=== PATIENT | female | born 1985 | race Caucasian/White ===

== ENCOUNTER 2018-09-21 23:23 | Emergency (ER) | payer SELFPAY ==
--- OUTSIDE RECORDS SUMMARY | 2018-09-21 23:26 | XMS REPORT ---
:1985 [facility] Address [address] [place] [address] Care Team Providers Name Role Phone Unavailable Unavailable Unavailable Problems This patient has no known problems. Allergies, Adverse Reactions, Alerts This patient has no known allergies or adverse reactions. Medications This patient has no known medications.
--- NOTE | 2018-09-22 00:43 | EDPHYS ---
Physician Documentation [facility] Name: Mary Stokes Age: 33 yrs Sex: Female : 1985 Arrival Date: 09/21/2018 Time: 23:26 Bed 15 Private MD: ED Physician Thang Gurrola HPI: 09/22 00:10 This 33 yrs old Female presents to ER via Ambulatory with complaints of cp Vomiting, Dizziness, General Weakness. 00:10 The patient presents to the emergency department with nausea, that is mild, vomiting, 1 cp times today. Onset: The symptoms/episode began/occurred today. Possible causes: unknown. Associated signs and symptoms: Pertinent positives: dizziness, lightheaded , Pertinent negatives: diarrhea, dysuria, fever, vaginal discharge, vaginal bleeding. Severity of symptoms: in the emergency department the symptoms are unchanged despite home interventions. 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 - Social history:: Smoking status: Patient/guardian denies using tobacco, never smoked. - Ebola Screening: : Patient negative for fever greater than or equal to 101.5 degrees Fahrenheit, and additional compatible Ebola Virus Disease symptoms. ROS: 00:15 Constitutional: Negative for body aches, chills, fever, poor PO intake. cp 00:15 Eyes: Negative for injury, pain, redness, and discharge. cp 00:15 ENT: Negative for drainage from ear(s), ear pain, sore throat, difficulty swallowing, difficulty handling secretions. 00:15 Cardiovascular: Negative for chest pain, palpitations. 00:15 Respiratory: Negative for cough, shortness of breath, wheezing. 00:15 Abdomen/GI: Positive for nausea, Negative for diarrhea, constipation, anorexia, black/tarry stool, rectal bleeding, active vomiting. 00:15 : Negative for urinary symptoms, flank pain, vaginal bleeding, vaginal discharge. 00:15 Skin: Negative for rash. 00:15 Neuro: Positive for dizziness, Negative for altered mental status, headache, syncope, weakness. 00:15 All other systems are negative. Exam: 09/22 00:20 Constitutional: The patient appears in no acute distress, alert, awake, non-toxic, well cp developed, well nourished. 00:20 Head/Face: Normocephalic, atraumatic. cp 00:20 Eyes: Periorbital structures: appear normal, Conjunctiva: normal, no exudate, no injection, Sclera: no appreciated abnormality, Lids and lashes: appear normal, bilaterally. 00:20 ENT: External ear(s): are unremarkable, Nose: is normal, Mouth: Lips: moist, Oral mucosa: pink and intact, moist, Posterior pharynx: is normal, airway is patent, no erythema, no exudate. 00:20 Neck: ROM/movement: is normal, is supple, without pain, no range of motions limitations, no nuchal rigidity. 00:20 Chest/axilla: Inspection: normal, Palpation: is normal, no crepitus, no tenderness. 00:20 Cardiovascular: Rate: normal, Rhythm: regular. 00:20 Respiratory: the patient does not display signs of respiratory distress, Respirations: normal, no use of accessory muscles, no retractions, no splinting, no tachypnea, labored breathing, is not present, Breath sounds: are clear throughout, no decreased breath sounds, no stridor, no wheezing. 00:20 Abdomen/GI: Inspection: abdomen appears normal, Palpation: abdomen is soft and non-tender, in all quadrants, voluntary guarding, is not appreciated, involuntary guarding, is not appreciated. 00:20 Back: pain, is absent, ROM is normal. 00:20 Skin: no rash present. 00:20 Neuro: Orientation: to person, place \T\ time. Mentation: is normal, Motor: moves all fours, strength is normal. Vital Signs: 09/21 23:55 BP 140 / 91; Pulse 75; Resp 16; Pulse Ox 99% on R/A; tr5 09/22 00:25 BP 127 / 82 Supine; Pulse 60; tr5 00:28 BP 126 / 89 Sitting; Pulse 60; tr5 00:32 BP 122 / 86 Standing; Pulse 56; tr5 MDM: 00:03 Patient medically screened. cp 00:42 Data reviewed: vital signs, nurses notes, lab test result(s), and as a result, I will cp discharge patient. 00:42 Differential diagnosis: gastritis, , dehydration, electrolyte abnormality. cp Counseling: I had a detailed discussion with the patient and/or guardian regarding: the historical points, exam findings, and any diagnostic results supporting the discharge/admit diagnosis, lab results, the need for outpatient follow up, an OB/Gyne specialist, to return to the emergency department if symptoms worsen or persist or if there are any questions or concerns that arise at home. 09/22 00:13 Order name: Urine Dipstick--Ancillary (enter results) [facility] 09/22 00:13 Order name: Urine --Ancillary (enter results) [facility] 09/21 23:59 Order name: Orthostatics; Complete Time: 00:36 cp 09/22 00:00 Order name: Urine Dipstick-Ancillary (obtain specimen); Complete Time: 00:12 cp 09/22 00:00 Order name: Urine Test (obtain specimen); Complete Time: 00:12 cp 09/22 00:11 Order name: PO challenge; Complete Time: 00:12 cp Administered Medications: 00:39 Drug: Tylenol 1000 mg Route: PO; tr5 Disposition: 09/22/18 00:43 Discharged to Home. Impression: related conditions, unspecified, Nausea and vomiting. - Condition is Stable. - Discharge Instructions: Nausea and Vomiting, Adult, First Trimester of . - Prescriptions for Diclegis 10- 10 mg Oral tablet,delayed release (DR/EC) - take 1 tablet by ORAL route 3-4 times daily As needed 1 tablet prior to meals and 2 tablets at bedtime; 30 tablet. Vitamin 27- 0.8 mg Oral Tablet - take 1 tablet by ORAL route once daily; 60 tablet. - Medication Reconciliation Form, Thank You Letter, Antibiotic Education, Prescription Opioid Use form. - Follow up: Maryuri Cisse MD; When: 1 week; Reason: Recheck today's complaints. Follow up: Maryuri Cisse MD; When: 2 - 3 days; Reason: Worsening of condition. - Problem is new. - Symptoms have improved. Addendum: 09/23/2018 10:00 Co-signature as Attending Physician, Thang Gurrola MD I agree with the assessment and k dr plan of care. Signatures: Dispatcher [facility] EDMS Kayce Ruiz RN RN aa1 Thang Gurrola MD MD kdr Alex Lord PA PA cp Teddy Banks RN RN tr5 Corrections: (The following items were deleted from the chart) 09/22 01:03 00:43 09/22/2018 00:43 Discharged to Home. Impression: related conditions, aa1 unspecified; Nausea and vomiting. Condition is Stable. Forms are Medication Reconciliation Form, Thank You Letter, Antibiotic Education, Prescription Opioid Use. Follow up: Mini Rekhi; When: 2 - 3 days; Reason: Worsening of condition. Problem is new. Symptoms have improved. cp
--- NOTE | 2018-09-22 00:43 | ER ---
Nurse's Notes [facility] Name: Mary Stokes Age: 33 yrs Sex: Female : 1985 Arrival Date: 09/21/2018 Time: 23:26 Bed 15 Private MD: Diagnosis: related conditions, unspecified;Nausea and vomiting Presentation: 09/21 23:45 Presenting complaint: Patient states: Pt has been felling lightheaded and has had some tr5 nausea/vomiting today. Pt suspects there is a possibility that she could be . Pt report sore breasts and a LMP of August 24. Transition of care: patient was not received from another setting of care. Onset of symptoms was September 21, 2018. Risk Assessment: Do you want to hurt yourself or someone else? Patient reports no desire to harm self or others. Initial Sepsis Screen: Does the patient meet any 2 criteria? No. Patient's initial sepsis screen is negative. Does the patient have a suspected source of infection? No. Patient's initial sepsis screen is negative. Care prior to arrival: None. 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 - Social history:: Smoking status: Patient/guardian denies using tobacco, never smoked. - Ebola Screening: : Patient negative for fever greater than or equal to 101.5 degrees Fahrenheit, and additional compatible Ebola Virus Disease symptoms. Screenin:57 Abuse screen: Denies threats or abuse. Nutritional screening: No deficits noted. tr5 Tuberculosis screening: No symptoms or risk factors identified. Fall Risk None identified. Assessment: 23:57 General: Appears in no apparent distress. Behavior is calm, cooperative. Pain: Denies tr5 pain. Neuro: Level of Consciousness is awake, alert, obeys commands, Oriented to person, place, time, Mosaic Worker are equal bilaterally. Neuro: Reports weakness. Cardiovascular: Heart tones present Bruits absent Capillary refill < 3 seconds Pulses are all present. Edema is absent. Respiratory: Airway is patent Trachea midline Respiratory effort is even, unlabored, Respiratory pattern is regular, symmetrical, Breath sounds are clear bilaterally. GI: Abdomen is round Reports bloating, nausea, vomiting. : No signs and/or symptoms were reported regarding the genitourinary system. EENT: No signs and/or symptoms were reported regarding the EENT system. Derm: Skin is intact, Skin is dry, Skin is pink, warm \T\ dry. Musculoskeletal: Capillary refill < 3 seconds. 09/22 00:23 Reassessment: Patient appears in no apparent distress at this time. Patient and/or tr5 family updated on plan of care and expected duration. Pain level reassessed. Patient is alert, oriented x 3, equal unlabored respirations, skin warm/dry/pink. 01:00 Reassessment: Patient appears in no apparent distress at this time. Patient is alert, aa1 oriented x 3, equal unlabored respirations, skin warm/dry/pink. Discussed d/c \T\ f/u instructions with pt; denies questions or concerns at this time. Ambulatory to lobby with steady gait. Patient states feeling better. Vital Signs: 09/21 23:55 BP 140 / 91; Pulse 75; Resp 16; Pulse Ox 99% on R/A; tr5 09/22 00:25 BP 127 / 82 Supine; Pulse 60; tr5 00:28 BP 126 / 89 Sitting; Pulse 60; tr5 00:32 BP 122 / 86 Standing; Pulse 56; tr5 ED Course: 09/21 23:26 Patient arrived in ED. am2 23:39 Teddy Banks, REBEKAH is Primary Nurse. tr5 23:42 Alex Lord PA is PHCP. cp 23:42 Thang Gurrola MD is Attending Physician. cp 23:53 Triage completed. tr5 23:57 Arm band placed on. tr5 09/22 00:23 Patient has correct armband on for positive identification. tr5 00:42 Maryuri Cisse MD is Referral Physician. cp 00:42 Referral Physician role handed off by Maryuri Cisse MD cp 00:42 Maryuri Cisse MD is Referral Physician. cp 01:00 No provider procedures requiring assistance completed. Patient did not have IV access aa1 during this emergency room visit. Administered Medications: 00:39 Drug: Tylenol 1000 mg Route: PO; tr5 Outcome: 00:43 Discharge ordered by . sudheer 01:00 Discharged to home ambulatory. aa1 01:00 Condition: good 01:00 Discharge instructions given to patient, Instructed on discharge instructions, follow up and referral plans. medication usage, Demonstrated understanding of instructions, follow-up care, medications, Prescriptions given X 2. 01:03 Patient left the ED. aa1 Signatures: Kayce Ruiz RN RN aa1 Alex Lord PA PA Cassidy Angel am2 Teddy Banks RN RN tr5 Corrections: (The following items were deleted from the chart) 09/21 23:57 23:57 General: Appears tr5 tr5 09/22 00:36 00:25 BP 127 / 82; Pulse 60bpm; tr5 tr5
[2018-09-22] MEDS ORDERED: ACETAMINOPHEN 500 MG TAB ONE (00:46)
[2018-09-22 02:05] LABS: Urine Blood NEGATIVE (NEG); Urine Glucose NEGATIVE (NEG); Urine Protein TRACE (NEG); Urine Specific Gravity >1.030 (1.005-1.030); Urine pH 5.5 (5.0-7.0)
[2018-09-22 02:45] VITALS: O2SAT 99
[2018-09-22 02:49] VITALS: BP 122/86
== END 2018-09-22 01:03 | disposition home or self-care (01) ==
LOC: ER 23:23
DX: O21.9 Vomiting of pregnancy, unspecified (principal); Z3A.01 Less than 8 weeks gestation of pregnancy
CPT/HCPCS: 81003; 81025; 99283

== ENCOUNTER 2018-11-07 17:32 | Emergency (ER) | payer OTHER ==
--- OUTSIDE RECORDS SUMMARY | 2018-11-07 17:34 | XMS REPORT ---
:1985 [facility] Address [address] [place] [address] Care Team Providers Name Role Phone Unavailable Unavailable Unavailable Problems This patient has no known problems. Allergies, Adverse Reactions, Alerts This patient has no known allergies or adverse reactions. Medications This patient has no known medications.
--- OUTSIDE RECORDS SUMMARY | 2018-11-07 17:35 | XMS REPORT | Summary of Care ---
:1985 Author Organization [facility] Address [address] [place] [id number] Care Team Providers Name Role Phone Kendra Yanez [facility] Provider Reason for Visit Reason Comments Follow-up Encounter Details Date Type Department Care Team Description 10/29/2018 Office Visit [facility] Edwardo Mahoney Bilateral wrist pain Surgery- Denae Pierson MD (Primary Dx) [address], [address] [place] [address] [place], [place] [phone] [id number] Allergies No Known Allergiesdocumented as of this encounter (statuses as of 11/02/2018) Medications Medication Sig Dispensed Refills Start Date End Date Status QUEtiapine (SEROQUEL) Take 100 mg by 0 Active 100 mg tablet mouth daily. metroNIDAZOLE 500 mg Take 1 tablet by 14 tablet 0 05/18/2018 Active tabletIndications: BV mouth 2 (two) (bacterial vaginosis) times daily. documented as of this encounter (statuses as of 11/02/2018) Active Problems Problem Noted Date Vaginal discharge 05/18/2018 Tobacco use disorder 04/29/2016 History of depression 04/29/2016 Contraceptive management 11/26/2014 Overview: Nexplanon insertion 2013, removal 2016 IUD insertion 2016, removal 2017 documented as of this encounter (statuses as of 11/02/2018) Resolved Problems Problem Noted Date Resolved Date IUD (intrauterine device) in place 06/10/2016 02/22/2018 Well woman exam 04/29/2016 02/22/2018 Obese 04/29/2016 02/22/2018 Nexplanon removal 04/29/2016 06/10/2016 Encounter for IUD insertion 04/29/2016 06/10/2016 BV (bacterial vaginosis) 09/16/2015 02/22/2018 Breakthrough bleeding on Nexplanon 09/16/2015 02/22/2018 BV (bacterial vaginosis) 05/05/2015 09/16/2015 History of depression 11/26/2014 05/05/2015 Obesity 11/26/2014 11/26/2014 Overview: ICD10 Diagnosis Term Bender Machine Utility BV (bacterial vaginosis) 11/26/2014 05/05/2015 Screen for STD (sexually transmitted disease) 11/26/2014 02/22/[address] 11/26/2014 04/29/2016 Overweight 11/26/2014 05/05/2015 Overview: ICD10 Diagnosis Term Bender Machine Utility Bacterial vaginosis 05/16/2013 11/26/2014 Encounter for routine gynecological examination 05/02/2012 11/26/2014 Overview: ICD10 Diagnosis Term Bender Machine Utility Tobacco use disorder 05/02/2012 05/05/2015 Abdominal pain, epigastric 05/02/2012 05/16/2013 Depression 05/02/2012 11/26/2014 Overview: Denies suicidal ideations. Normal spontaneous vaginal delivery 04/09/2011 05/02/2012 Post term , antepartum condition or complication 04/08/20112011 documented as of this encounter (statuses as of 11/02/2018) Immunizations Name Administration Dates Next Due HPV 05/02/2012 Influenza Virus Vaccine 04/10/2011 Tetanus/Diptheria 03/06/2009 documented as of this encounter Social History Tobacco Use Types Packs/Day Years Used Date Current Every Day Smoker Cigarettes 0.25 4 Started: 04/29/2010 Smokeless Tobacco: Never Used Comments: 10 cigarettes per day Alcohol Use Drinks/Week oz/Week Comments No 3 Cans of beer 1.5 every other day Sex Assigned at Date Recorded Not on file Job Start Date Occupation Industry Not on file Not on file Not on file Travel History Travel Start Travel End No recent travel history available. documented as of this encounter Last Filed Vital Signs Vital Sign Reading Time Taken Comments Blood Pressure 113/80 10/29/2018 3:17 PM CDT Pulse 123 10/29/2018 3:17 PM CDT Temperature - - Respiratory Rate - - Oxygen Saturation - - Inhaled Oxygen Concentration - - Weight 87.1 kg (192 lb) 10/29/2018 3:17 PM CDT Height 170.2 cm (5' 7") 10/29/2018 3:17 PM CDT Body Mass Index 30.07 10/29/2018 3:17 PM CDT documented in this encounter Progress Notes Edwardo Mahoney MD - 10/29/2018 3:15 PM CDT Cc: Chief Complaint Patient presents with Follow-up EMG Results. Available in chart. Jackson Enrique 10/29/2018 3:18 PM Mary Stokes is a 33 year old female. Patient here for Bilateral EMG/NVC results. Continues to have pain and discomfort. Allergies Mary has No Known Allergies. Medications Outpatient Medications Prior to Visit Medication Sig Dispense Refill metroNIDAZOLE 500 mg tablet Take 1 tablet by mouth 2 (two) times daily. 14 tablet 0 QUEtiapine (SEROQUEL) 100 mg tablet Take 100 mg by mouth daily. No facility-administered medications prior to visit. Histories Past Medical History: Diagnosis Date Abnormal Pap smear HPV at age 18 Bacterial vaginosis 05/16/2013 Breakthrough bleeding on Nexplanon 09/16/2015 Depression childhood Depression 05/02/2012 Kidney disease 2011 kidney stone Meningitis due to bacteria 2014 STD (sexually transmitted disease) 2011 trichomonas STD (sexually transmitted disease) herpes Tobacco use disorder 05/02/2012 Past Surgical History: Procedure Laterality Date CONTINUOUS MONITORING (EXTERNAL) 04/09/2011 INJECT EPIDURAL ANEST,LUMB,CONTINOUS 04/09/2011 OBSTE CARE,VAG DELIV+ 04/09/2011 OXYTOCIN INDUCTION/AUGMENTATION REFERENCE LINK ORDER 04/09/2011 UTERINE ACTIVITY MONITORING 04/09/2011 Social History Socioeconomic History Marital status: Single Spouse name: Not on file Number of children: 2 Years of education: 11 Highest education level: Not on file Occupational History 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 Employer: [employer] Social Needs Financial resource strain: Not on file Food insecurity: Worry: Not on file Inability: Not on file Transportation needs: Medical: Not on file Non-medical: Not on file Tobacco Use Smoking status: Current Every Day Smoker Packs/day: 0.25 Years: 4.00 Pack years: 1.00 Types: Cigarettes Start date: 04/29/2010 Smokeless tobacco: Never Used Tobacco comment: 10 cigarettes per day Substance and Sexual Activity Alcohol use: No Alcohol/week: 1.5 oz Types: 3 Cans of beer per week Comment: every other day Drug use: No Sexual activity: Yes Partners: Male control/protection: Implant Comment: Last sexual intercourse 02/15/2018 Lifestyle Physical activity: Days per week: Not on file Minutes per session: Not on file Stress: Not on file Relationships Social connections: Talks on phone: Not on file Gets together: Not on file Attends pentecostalism service: Not on file Active member of club or organization: Not on file Attends meetings of clubs or organizations: Not on file Relationship status: Not on file Intimate partner violence: Fear of current or ex partner: Not on file Emotionally abused: Not on file Physically abused: Not on file Forced sexual activity: Not on file Other Topics Concern Service Not Asked Blood Transfusions No Caffeine Concern Not Asked Occupational Exposure Not Asked Hobby Hazards Not Asked Sleep Concern Not Asked Stress Concern Not Asked Weight Concern Not Asked Special Diet Not Asked Back Care Not Asked Exercise Not Asked Bike Helmet Not Asked Seat Belt Not Asked Self-Exams Not Asked Social History Narrative No domestic violence or abuse Family History Problem Relation Age of Onset Asthma Mother Hypertension Mother Neurological Mother Stroke Arthritis NoFHx defects NoFHx Colon Cancer NoFHx Ovarian Cancer NoFHx Uterine Cancer NoFHx Diabetes NoFHx Genetic NoFHx Cancer NoFHx Depression NoFHx Heart NoFHx Mental retardation NoFHx High cholesterol NoFHx Osteoporosis NoFHx Psychiatry NoFHx Review of Systems Constitutional: Negative. HENT: Negative. Eyes: Negative. Respiratory: Negative. Breasts: Negative. Cardiovascular: Negative. Gastrointestinal: Negative. Genitourinary: Negative. Musculoskeletal: Positive for joint swelling. Skin: Negative. Neurological: Positive for numbness. Psychiatric/Behavioral: Negative. Endocrine: Endocrine negative Vital Signs Ht 67" (170.2 cm) | Wt 87.1 kg (192 lb) | BMI 30.07 kg/m Physical Exam Musculoskeletal: General: Well-developed well-nourished oriented to person place and time HEENT normocephalic atraumatic atraumatic pupils equal round reactive to light extraocular muscles intact Cervical thoracic and lumbar spine without focal deficit normal kyphosis and lordosis Chest clear to auscultation and percussion Cardiovascular regular rate and rhythm without gallop rub or murmur soft without organomegaly Normal bowel sounds Neurologic: Focal myotome or dermatomal deficits Vascular: Intact symmetrical bilateral upper and lower extremities Skin without stasis varicosities or breakdown Extremities without cyanosis clubbing or edema Lymphatics no peripheral lymphedema Psych normal mood and affect. Neurovascular function is intact. To include brisk capillary refill warm pink skin active motor function and sensory function intact. Nursing note and vitals reviewed. Conclusions: Abnormal study. Electrodiagnostic evidence of very mild median neuropathies at wrists bilaterally. Assessment/Plan Diagnosis: Bilateral Carpal Tunnel Syndrome - Mild - induced Plan: Mild CTS - recommend night splints - discuss patient medication with OB/ Food Preparation Worker. Follow up prn. documented in this encounter Plan of Treatment Health Maintenance Due Date Last Done Comments PNEUMOCOCCAL 0-64 YEARS COMBINED 1993 SERIES (1 of 1 - PPSV23) VARICELLA VACCINES (1 of 2 - 13+ 2000 2-dose series) DTaP,Tdap,and Td Vaccines (1 - 2006 Tdap) INFLUENZA VACCINE (#1) 2018 04/10/2011 PAP SMEAR 02/22/2021 02/22/2018, 09/02/2014, 06/01/2011, Additional history exists documented as of this encounter Results Not on filedocumented in this encounter Visit Diagnoses Diagnosis Bilateral wrist pain - Primary documented in this encounter Insurance Payer Benefit Plan / Subscriber ID Effective Phone Address Type Group Dates [facility] [place] [place] xxxxxxxxx 2018-Karson [place] Medicaid HEALTH CHOICE - HEALTH [employer] [id number] MANAGED MEDICAID [place], [place] [phone] documented as of this encounter Advance Directives Type Date Recorded 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
[2018-11-07 18:22] LABS: Absolute Lymphocytes (CBC) 2.1 K/uL (0.7-4.9); Basophils % 0.6 % (0-1.3); Hematocrit 38.7 % (36.0-45.0); Lymphocytes % 23.3 % (15.3-44.8); MPV 8.7 fL (7.6-11.3); RBC Red Blood Cell Count 4.28 M/uL (3.86-4.86)
[2018-11-07 18:46] LABS: Urine Blood 2+ (NEG); Urine Glucose NEGATIVE (NEG); Urine Protein NEGATIVE (NEG); Urine Specific Gravity 1.025 (1.005-1.030)
--- NOTE | 2018-11-07 19:05 | RAD REPORT ---
EXAM DESCRIPTION: US - 1St Trimest Single 1St Fetus - 11/07/2018 6:55 pm CLINICAL HISTORY: ABD CRAMPING, COMPARISON: Matter Eval Tm 1 dated 10/27/2018 FINDINGS: A single gestational sac is seen within the uterus. The shape of the sac is within normal limits for gestational age. Within the sac is a single pole heart rate 166 BPM. The placenta is not yet developed due to early gestational age. The maternal adnexa and ovaries are within normal limits. Normal Doppler blood flow was demonstrated to both ovaries. IMPRESSION: Single live early intrauterine gestation with heart rate of 166 BPM. No unusual or unexpected finding.
[2018-11-07 19:06] LABS: BUN Blood Urea Nitrogen 10 mg/dL (7-18); Bicarbonate 24 mmol/L (21-32); Glucose Level 80 mg/dL (74-106); HCG, Quantitative 111783 mIU/mL (1-3); Potassium 3.7 mmol/L (3.5-5.1); Sodium Level 140 mmol/L (136-145)
--- NOTE | 2018-11-07 19:30 | EDPHYS ---
Physician Documentation [facility] Name: Mary Stokes Age: 33 yrs Sex: Female : 1985 Arrival Date: 11/07/2018 Time: 17:35 Bed 20 Private MD: ED Physician Hugo Ferreira HPI: 11/07 18:07 This 33 yrs old Female presents to ER via Wheelchair with complaints of kb Vaginal Bleeding, + Preg <12wks. 18:07 The patient presents to the emergency department with abdominal pain, that started kb today, vaginal bleeding, that is moderate. The estimated gestational age is 11 weeks. course: care: at a clinic, Leakage of Fluid: none appreciated, Ultrasound: the patient had an ultrasound, Risk/complications: no obvious risks or complications are appreciated. Previous pregnancies: in previous pregnancies patient has had. Associated signs and symptoms: Pertinent positives: abdominal pain, vaginal bleeding. The patient has not experienced similar symptoms in the past. The patient has not recently seen a physician. 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 - Social history:: Smoking status: . - Ebola Screening: : Patient denies travel to an Ebola-affected area in the 21 days before illness onset. ROS: 18:07 Constitutional: Negative for fever, chills, and weight loss, ENT: Negative for injury, kb pain, and discharge, Neck: Negative for injury, pain, and swelling, Cardiovascular: Negative for chest pain, palpitations, and edema, Respiratory: Negative for shortness of breath, cough, wheezing, and pleuritic chest pain, Back: Negative for injury and pain, MS/Extremity: Negative for injury and deformity, Skin: Negative for injury, rash, and discoloration, Neuro: Negative for headache, weakness, numbness, tingling, and seizure. 18:07 Abdomen/GI: Positive for abdominal cramps. 18:07 : Positive for vaginal bleeding. Exam: 18:07 Constitutional: This is a well developed, well nourished patient who is awake, alert, kb and in no acute distress. Head/Face: Normocephalic, atraumatic. Chest/axilla: Normal chest wall appearance and motion. Nontender with no deformity. No lesions are appreciated. Cardiovascular: Regular rate and rhythm with a normal S1 and S2. No gallops, murmurs, or rubs. Normal PMI, no JVD. No pulse deficits. Respiratory: Lungs have equal breath sounds bilaterally, clear to auscultation and percussion. No rales, rhonchi or wheezes noted. No increased work of breathing, no retractions or nasal flaring. Back: No spinal tenderness. No costovertebral tenderness. Full range of motion. Skin: Warm, dry with normal turgor. Normal color with no rashes, no lesions, and no evidence of cellulitis. MS/ Extremity: Pulses equal, no cyanosis. Neurovascular intact. Full, normal range of motion. Neuro: Awake and alert, GCS 15, oriented to person, place, time, and situation. Cranial nerves II-XII grossly intact. Motor strength 5/5 in all extremities. Sensory grossly intact. Cerebellar exam normal. Normal gait. 18:07 Abdomen/GI: Inspection: abdomen appears normal, Bowel sounds: normal, in all quadrants, Palpation: mild abdominal tenderness, in the right lower quadrant and left lower quadrant. Vital Signs: 17:39 BP 113 / 68; Pulse 85; Resp 17; Temp 97.4(O); Pulse Ox 99% on R/A; Weight 81.65 kg (R); tw2 Height 5 ft. 7 in. (170.18 cm) (R); Pain 8/10; 19:45 BP 109 / 68; Pulse 81; Resp 18; Temp 97.6; Pulse Ox 98% on R/A; Pain 0/10; aa1 17:39 Body Mass Index 28.19 (81.65 kg, 170.18 cm) tw2 MDM: 17:41 Patient medically screened. kb 18:07 Data reviewed: vital signs, nurses notes. Data interpreted: Pulse oximetry: on room air kb is 99 %. Interpretation: normal. 19:08 Counseling: I had a detailed discussion with the patient and/or guardian regarding: the kb historical points, exam findings, and any diagnostic results supporting the discharge/admit diagnosis, lab results, radiology results, the need for outpatient follow up, an OB/Gyne specialist, to return to the emergency department if symptoms worsen or persist or if there are any questions or concerns that arise at home. 11/07 17:42 Order name: Quantitative Hcg; Complete Time: 19:07 kb 11/07 17:42 Order name: Abo/rh Typing; Complete Time: 19:28 kb 11/07 17:42 Order name: Basic Metabolic Panel; Complete Time: 19:07 kb 11/07 17:42 Order name: CBC with Diff; Complete Time: 18:30 kb 11/07 18:26 Order name: Urine Dipstick--Ancillary (enter results); Complete Time: 18:50 em1 11/07 18:26 Order name: Urine --Ancillary (enter results); Complete Time: 18:50 em1 11/07 17:42 Order name: Urine Test (obtain specimen); Complete Time: 18:26 kb 11/07 17:42 Order name: IV Saline Lock; Complete Time: 18:07 kb 11/07 17:42 Order name: Labs collected and sent; Complete Time: 18:08 kb 11/07 17:42 Order name: NPO; Complete Time: 18:08 kb 11/07 17:42 Order name: Urine Dipstick-Ancillary (obtain specimen); Complete Time: 18:26 kb 11/07 18:55 Order name: 1St Trimest Single 1St Fetus EDW[place] Administered Medications: No medications were administered Disposition: 11/08 06:59 Co-signature as Attending Physician, Hugo Ferreira MD. rn Disposition: 11/07/18 19:29 Discharged to Home. Impression: 12 weeks gestation of . - Condition is Stable. - Discharge Instructions: First Trimester of , [id number]. - Medication Reconciliation Form, Thank You Letter, Antibiotic Education, Prescription Opioid Use form. - Follow up: Emergency Department; When: As needed; Reason: Worsening of condition. Follow up: Private Physician; When: 2 - 3 days; Reason: Recheck today's complaints, Continuance of care, Re-evaluation by your physician. Signatures: Dispatcher [facility] Carlee Josue, TOMAS DOUGLAS-Kayce Molina RN RN aa1 Hugo Ferreira MD MD rn Wise, Tara, RN RN tw2 Corrections: (The following items were deleted from the chart) 11/07 18:55 18:30 Transvaginal Ob+US.RAD.DEVIKAZ ordered. [facility] EDMS 19:46 19:29 11/07/2018 19:29 Discharged to Home. Impression: 12 weeks gestation of . aa1 Condition is Stable. Forms are Medication Reconciliation Form, Thank You Letter, Antibiotic Education, Prescription Opioid Use. Follow up: Emergency Department; When: As needed; Reason: Worsening of condition. Follow up: Private Physician; When: 2 - 3 days; Reason: Recheck today's complaints, Continuance of care, Re-evaluation by your physician. kb
--- NOTE | 2018-11-07 19:30 | ER ---
Nurse's Notes [facility] Name: Mary Stokes Age: 33 yrs Sex: Female : 1985 Arrival Date: 11/07/2018 Time: 17:35 Bed 20 Private MD: Diagnosis: 12 weeks gestation of Presentation: 11/07 17:37 Presenting complaint: Patient states: i am confirmed 11 weeks , i started tw2 bleeding about 30 minutes, dark red, i was just standing cooking and a big chunk came out, i have been having a lot of cramping practically the whole and today it was really bad. Transition of care: patient was not received from another setting of care. Onset of symptoms was November 07, 2018. Risk Assessment: Do you want to hurt yourself or someone else? Patient reports no desire to harm self or others. Initial Sepsis Screen: Does the patient meet any 2 criteria? No. Patient's initial sepsis screen is negative. Does the patient have a suspected source of infection? No. Patient's initial sepsis screen is negative. Care prior to arrival: None. 17:37 Method Of Arrival: Wheelchair tw2 17:37 Acuity: [place] 3 tw2 Triage Assessment: 17:39 General: Appears in no apparent distress. Behavior is crying. Pain: Complains of pain tw2 in pelvis. : Reports vaginal bleeding that is bright red, with clots. 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 - Social history:: Smoking status: . - Ebola Screening: : Patient denies travel to an Ebola-affected area in the 21 days before illness onset. Screenin:33 Abuse screen: Denies threats or abuse. Denies injuries from another. Nutritional jl7 screening: No deficits noted. Tuberculosis screening: No symptoms or risk factors identified. Fall Risk IV access (20 points). Total Kang Fall Scale indicates No Risk (0-24 pts). Assessment: 18:33 Obstetrical Assessment: Patient reports abdominal cramping. General: Appears in no jl7 apparent distress. uncomfortable, Behavior is cooperative, appropriate for age, anxious. Neuro: Level of Consciousness is awake, alert, obeys commands, Oriented to person, place, time, situation. Cardiovascular: Patient's skin is warm and dry. Respiratory: Airway is patent Respiratory effort is even, unlabored, Respiratory pattern is regular, symmetrical. : Reports vaginal bleeding that is bright red, moderate flow, since about an hour ago "I have bacterial vaginosis and my doctor called in my prescriptions but I haven't been able to pickling grader the medication.". Derm: Skin is pink, warm \\T\\ dry. 19:45 Reassessment: Patient appears in no apparent distress at this time. Patient is alert, aa1 oriented x 3, equal unlabored respirations, skin warm/dry/pink. Discussed d/c \\T\\ f/u instructions with pt; denies questions or concerns at this time. Ambulates to lobby with steady gait Patient denies pain at this time. Vital Signs: 17:39 BP 113 / 68; Pulse 85; Resp 17; Temp 97.4(O); Pulse Ox 99% on R/A; Weight 81.65 kg (R); tw2 Height 5 ft. 7 in. (170.18 cm) (R); Pain 8/10; 19:45 BP 109 / 68; Pulse 81; Resp 18; Temp 97.6; Pulse Ox 98% on R/A; Pain 0/10; aa1 17:39 Body Mass Index 28.19 (81.65 kg, 170.18 cm) tw2 ED Course: 17:35 Patient arrived in ED. mr 17:39 Triage completed. tw2 17:39 Arm band placed on. tw2 17:41 Carlee Josue FNP-C [facility]. kb 17:41 Hugo Ferreira MD is Attending Physician. kb 17:52 Anand Mayes RN is Primary Nurse. jl7 17:59 Initial lab(s) drawn, by me, sent to lab. Inserted saline lock: 20 gauge in right dh3 antecubital area, using aseptic technique. Blood collected. 18:26 Urine collected: clean catch specimen, clear. dh3 18:33 Patient has correct armband on for positive identification. Bed in low position. Call jl7 light in reach. Side rails up X 1. Pulse ox on. NIBP on. Warm blanket given. 18:55 1St Trimest Single 1St Fetus In Process Unspecified. EDMS 19:45 No provider procedures requiring assistance completed. IV discontinued, intact, aa1 bleeding controlled, No redness/swelling at site. Pressure dressing applied. Administered Medications: No medications were administered Outcome: 19:29 Discharge ordered by . arabella 19:45 Discharged to home ambulatory, with significant other. aa1 19:45 Condition: good 19:45 Discharge instructions given to patient, Instructed on discharge instructions, follow up and referral plans. Demonstrated understanding of instructions, follow-up care. 19:46 Patient left the ED. aa1 Signatures: Dispatcher [employer] EDMS Carlee Josue, REFURBISH TECHNICIAN-C REFURBISH TECHNICIAN-Kayce Molina, RN RN aa1 Ellyn Bhardwaj Cheri Hardwick RN RN tw2 Anand Mayes RN RN jl7 Jossy Coleman [facility]
[2018-11-07 21:07] VITALS: BP 109/68; TEMP 97.6; O2SAT 98
== END 2018-11-07 19:46 | disposition home or self-care (01) ==
LOC: ER 17:32
DX: O20.9 Hemorrhage in early pregnancy, unspecified (principal); Z3A.12 12 weeks gestation of pregnancy
CPT/HCPCS: 36415; 76801; 80048; 81003; 81025; 84702; 85025; 86900; 86901; 99284

== ENCOUNTER 2019-12-17 19:04 | Emergency (ER) | payer OTHER ==
--- OUTSIDE RECORDS SUMMARY | 2019-12-17 19:06 | XMS REPORT | Continuity of Care Document ---
:1985 Author Organization [facility] t Address [address] [place] [address] Care Team Providers Name Role Phone Marcella Patel Attending Clinician Doctor Unassigned, Name Attending Clinician Unavailable Problems This patient has no known problems. Allergies, Adverse Reactions, Alerts This patient has no known allergies or adverse reactions. Medications This patient has no known medications. Procedures This patient has no known procedures. 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
--- OUTSIDE RECORDS SUMMARY | 2019-12-17 19:07 | XMS REPORT | Summary of Care ---
:1985 Author Organization [facility] Address [address] [place] [address] Care Team Providers Name Role Phone Marcella Yanez DAVIN Primary Care Provider Reason for Visit Reason Comments Well Woman Exam Encounter Details Date Type Department Care Team Description 09/20/2019 Office Visit [facility]- Kendra Yanez for other contraceptive management (Primary Dx); JUAN Desai Screen for STD (sexually transmitted dis ease); [address] BV (bacterial vaginosis); Street ROS[address] A Well woman exam; [place], [place] [address] Over weight [id number] Allergies No Known Allergiesdocumented as of this encounter (statuses as of 09/23/2019) Medications Medication Sig Dispensed Refills Start Date End Date Status vitamin w/FA Take 1 tablet by 100 tablet 3 05/11/2019 Active tabletIndications: mouth daily. History of depression, (spontaneous vaginal delivery) docusate calcium 240 mg Take 1 capsule 60 capsule 1 05/11/2019 Active capsuleIndications: by mouth once History of depression, daily as needed (spontaneous for vaginal delivery) Constipation. ferrous sulfate 325 mg Take 1 tablet by 60 tablet 2 05/11/2019 Active (65 mg iron) mouth 2 (two) tabletIndications: times daily. History of depression, (spontaneous vaginal delivery) ibuprofen 600 mg Take 1 tablet by 60 tablet 1 05/11/2019 Active tabletIndications: mouth every 6 History of depression, (six) hours as (spontaneous needed (Pain). vaginal delivery) Take with food or milk. norgestimate-ethinyl Take 1 tablet by 1 Package 2 06/20/2019 Active estradiol (ORTHO mouth daily. TRI-CYCLEN LO, 28,) 0.18/0.215/0.25 mg-25 mcg tabletIndications: Other general counseling and advice for contraceptive management metroNIDAZOLE 500 mg Take 1 tablet by 14 tablet 0 09/20/2019 Active tabletIndications: BV mouth 2 (two) (bacterial vaginosis) times daily. documented as of this encounter (statuses as of 09/23/2019) Active Problems Problem Noted Date Over weight 09/20/2019 Well woman exam 09/20/2019 Other general counseling and advice for contraceptive management 06/20/2019 Cervical Papanicolaou smear negative within last 12 mo [facility] 02/22/2019 Overview: Nil pap 12-18-18 see scanned records History of herpes genitalis 02/11/2019 Overview: suppression at 36 weeks History of depression 04/29/2016 Contraceptive management 11/26/2014 Overview: Nexplanon insertion 2014, removal 2016 IUD insertion 2017, removal 2018 documented as of this encounter (statuses as of 09/23/2019) Resolved Problems Problem Noted Date Resolved Date (spontaneous vaginal delivery) 05/10/201905/29 Single live 05/10/2019 05/30/2019 38 weeks gestation of 05/09/2019 05/30/19 20 Positive GBS test 04/29/2019 05/30/2019 Supervision of high-risk 02/11/201905/29 Multiparity 02/11/2019 09/20/2019 Obesity in 02/11/2019 05/30/2019 Subchorionic hematoma 02/11/2019 05/30/2019 Overview: Per patient, she states it resolved per her last provider History of miscarriage 02/11/2019 05/30/2019 Vaginal discharge 05/18/2018 02/11/2019 IUD (intrauterine device) in place 06/10/201602/22 Well woman exam 04/29/2016 02/22/2018 Obese 04/29/2016 02/22/2018 Tobacco use in 04/29/2016 05/30/2019 Overview: Smokes a few cig a week per patient Nexplanon removal 04/29/2016 06/10/2016 Encounter for IUD insertion 04/29/2016 06/10/2016 BV (bacterial vaginosis) 09/16/2015 02/22/2018 Breakthrough bleeding on Nexplanon 09/16/201502/22 BV (bacterial vaginosis) 05/05/2015 09/16/2015 History of depression 11/26/2014 05/05/2015 Obesity 11/26/2014 11/26/2014 Overview: ICD10 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 BV (bacterial vaginosis) 11/26/2014 05/05/2015 Screen for STD (sexually transmitted disease) 11/26/2014 02/22/[address] 11/26/2014 04/29/2016 Overweight 11/26/2014 05/05/2015 Overview: ICD10 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 Normal spontaneous vaginal delivery 04/09/201104/07 Post term , antepartum condition or complication 04/09/2011 documented as of this encounter (statuses as of 09/23/2019) Immunizations Name Administration Dates Next Due HPV 05/02/2012 HPV9 05/11/2019 Influenza Virus Vaccine 04/10/2011 Influenza Virus Vaccine Quad .5 mL IM 6+ MO 01/18/2019 TDAP (ADACEL) VACCINE 02/25/2019 Tetanus/Diptheria 03/06/2009 documented as of this encounter Social History Tobacco Use Types Packs/Day Years Used Date Current Some Day Smoker Cigarettes 0.05 4 Star danay: 04/29/2010 Smokeless Tobacco: Never Used Comments: per pt smokes 1 cigarette a da y Alcohol Use Drinks/Week oz/Week Comments Yes 2 Cans of beer 2.0 scial Alcohol Habits Answer Date Recorded How often do you have a drink containing alcohol? 2-4 times a month 09/20/2019 How many drinks containing alcohol do you have on a 1 or 2 09/20/2019 typical day when you are drinking? How often do you have six or more drinks on one Never 09/20/2019 occasion? Sex Assigned at Date Recorded Not on file Job Start Date Occupation Industry Not on file Not on file Not on file Travel History Travel Start Travel End No recent travel history available. COVID-19 Exposure Response Date Recorded In the last month, have you been in contact with No / Unsure 09/20/2019 1:22 PM CDT someone who was confirmed or suspected to have Coronavirus / COVID-19? documented as of this encounter Last Filed Vital Signs Vital Sign Reading Time Taken Comments Blood Pressure 116/63 09/20/2019 1:30 PM CDT Pulse 72 09/20/2019 1:30 PM CDT Temperature 36.8 C (98.3 F) 09/20/2019 1:30 PM CDT Respiratory Rate 16 09/20/2019 1:30 PM CDT Oxygen Saturation - - Inhaled Oxygen Concentration - - Weight 84.3 kg (185 lb 12.8 oz) 09/20/2019 1:30 PM CDT Height 167.6 cm (5' 6") 09/20/2019 1:30 PM CDT Body Mass Index 29.99 09/20/2019 1:30 PM CDT documented in this encounter Patient Instructions Patient InstructionsLexa Bianca - 09/20/2019 1:15 PM CDT Patient Education Clinical Breast Exam Many health organizations recommend a yearly clinical breast exam. This exam may be done by a cupola repairer, family healthcare provider, nurse practitioner, nurse blind teacher, or specially trained nurse. Yearly breast exams help tomake surethat breast conditions are found early. Your healthcare providers role A healthcare professional knows the tests and follow-up care needed if a problem is found. Your clinical exam is also a great time to ask questions about breast self-exams. You can find out if yourechecking your breasts in the best way. Or you may want to ask how , breast implants, or breast reduction surgery affect the way you should check your breasts. Diagnostic tests If a clinical exam reveals a breast change, you may have other tests to find out more. These tests may include: Mammography. A low-dose X-ray of your breast tissue. Ultrasound. An imaging test that uses sound waves to create images of your breast. Biopsy. A small amount of breast tissue is removed by needle or by a cut (incision). The tissue is then checked under a microscope. Guidelines for having clinical breast exams The [employer] recommends that starting at age 29, you should have a clinical breast exam every 1 to 3 years. After age 40, have a clinical breast exam each year. If youre at higher risk for breast cancer, you may need exams more often. Risk factors for breast cancer may include: Being over 50 or postmenopausal Having a family history of breast cancer Having the BRCA1 or BRCA2 gene mutation or certain other gene mutations Having more menstrual periods due to starting menstruation early(before age 12) or having a late menopause (after age 55) Having no pregnancies Having a first after age 30 Being obese Having a history of radiation treatment to your chest area Exposure to HAIR during your mother's Not being active Drinking too much alcohol Having dense breast tissue Taking hormone therapy after menopause Other health organizations have different recommendations. Talk with your healthcare provider about what is best for you. [employer] last reviewed this educational content on 10/04/201619997973-2280 [employer]. [address] [place] [address]. All rights reserved. This information is not intended as a substitute for professional medical care. Always follow your healthcare professional's instructions. Patient Education Control: IUD (Intrauterine Device) The IUD (intrauterine device) is small, flexible, and T-shaped. A trained healthcare provider placesit in the uterus. The IUD is one of the most effective control methods. It is also reversible.This means it can be removed at any time by a trained healthcare provider. New IUDs are safe and do not have the risks of older types of IUDs. rates Talk to your healthcare provider about the effectiveness of this control method. Types of IUDs IUD insertion is done in the healthcare providers office. Two types of IUDs are available: The copper IUD releases a small amount of copper into the uterus. The copper makes it harder for sperm to reach the egg. The device works for at least 10 years. The progestin IUD releases a hormone called progestin. It causes changes in the uterus to help prevent . The device works for 3 to 5 years, depending on which device is chosen. It may be recommended for women who have anemia or heavy and painful periods. IUDs have thin strings that hang from the opening of the uterus into the vagina. This lets youcheck that the IUD stays in place. Things to know about IUDs IUDs can be used by women who have never been or by women with a history of sexually transmitted infections (STIs) or tubal . It won't move from the uterus to any other part of the body. There is a slight risk of the device coming out of the vagina (expulsion). It may not work in women who have an abnormally shaped uterus. A copper IUD may cause heavier periods and cramping. Progestin IUD may cause light periods or no periods at all (irregular bleeding or spotting is possible and normal during first 3 to 6 months). If you get a sexually transmitted infection with an IUD in place, symptoms may be more severe. When to call your healthcare provider Be sure your healthcare provider knows if you have: Asexually transmittedinfection (STI)or possible STI Liver problems Blood clots (for progestin IUD only) Breast cancer or a history of breast cancer (progestin IUD only) [employer] last reviewed this educational content on 05/04/201619991648-1995 [employer]. [address] [place] [address]. All rights reserved. This information is not intended as a substitute for professional medical care. Always follow your healthcare professional's instructions. Patient Education Eating Healthy on the Run Many grocery stores stock pre-made salads for eating on the run. Need to eat on the run? This often means grabbing "junk" or fast food full of fat, salt, sugar, and cholesterol. But being in a chaudhari doesn't mean that you can't eat healthy. "Fast" food made healthy Try these ways to get good nutrition, fast. Go to a grocery or convenience market instead of a fast-food restaurant. Look for choices like sandwiches, yogurt, fresh fruit, and juices. Buy precut, prepackaged fresh or frozen fruits and vegetables. You can use them for a snack, salad, smoothie, or stir-quintanilla. Microwave a frozen dinner that has less than 15 grams (g) of fat and less than 800 milligrams (mg) of sodium. Complete the meal with a whole-grain roll, vegetables, and fresh fruit. If you must have fast food, consider your options. Go for veggie burgers, broiled and skinless chicken breast sandwiches, or dinner salads with low-fat dressing. Avoid large (super-sized) portions. Blot the extra oil from food with a napkin before you eat it. Instead of hebrew fries, choose a baked potato with salsa. Tip Fast-food restaurants often have printed nutrition information available. Ask for this information and look up your favorite items before you order. [employer] last reviewed this educational content on 08/04/201619994484-7402 [employer]. [address] [place] [address]. All rights reserved. This information is not intended as a substitute for professional medical care. Always follow your healthcare professional's instructions. Patient Education The Benefits of Living Smoke Free What do you want to gain from quitting? Check off some reasons to quit. Health benefits ___ Improve my ability to breathe without coughing or shortness of breath ___ Reduce my risk of lung cancer, heart disease, chronic lung disease ___ Have fewer wrinkles and softer skin ___ Improve my sense of taste and smell ___ For womenreduce the risk of having a miscarriage, stillbirth, premature , or upo-bnltf-ueqhco baby Personal benefits ___ Feel more in control of my life ___ Have better-smelling hair, breath, clothes, home, and car ___ Save time by not having to take smoke breaks, buy cigarettes, or painting for a light ___ Have whiter teeth Family benefits ___ Reduce my childrens respiratory tract infections ___ Set a good example for my children ___ Reduce my familys cancer risk Financial benefits ___ Save hundreds of dollars each year that would be spent on cigarettes ___ Save money on medical bills ___ Save on life, health, and car insurance premiums Those dollars add up! Cigarettes are expensive, and getting more expensive all the time. Do you realize how much money youare spending on cigarettes per year? What is the average amount you spend on a pack of cigarettes? What is the average number of packs that you smoke per day? Using your answers to these questions, fill in this formula to help you find out: ($ per pack) ( number of packs per day)(365 days) = $ yearly cost of smoking Besides tobacco, there are other costs, including extra cleaning bills and replacement costs for clothing and furniture; medical expenses for smoking- related illnesses; and higher health, life, and carinsurance premiums. Cigars and pipes count too! Cigars and pipes are also dangerous. So are smokeless (chewing) tobacco and snuff. All of these products contain nicotine, a highly addictive substance that has harmful effects on your body. Quitting smoking means giving up all tobacco products. For more information https://smokefree.gov/hbjh-tq-ud-expert National Cancer [place] Smoking Quitline: 780-97A-VKRW (517-592-6533) [employer] last reviewed this educational content on 04/06/201619992452-4375 [employer]. [address] [place] [address]. All rights reserved. This information is not intended as a substitute for professional medical care. Always follow your healthcare professional's instructions. Patient Education Prevention Guidelines,Women Ages 18 to 39 Screening tests and vaccines are an important part of managing your health. A screening test is doneto find possible disorders or diseases in people who don't have any symptoms. The goal is to find a disease early so lifestyle changes can be made and you can be watched more closely to reduce the riskof disease, or to detect it early enough to treat it most effectively. Screening tests are not considered diagnostic, but are used to determine if more testing is needed. Health counseling is essential, too. Below are guidelines for these, for women ages 18 to 39. Talk with your healthcare provider tomake sure youre up-to-date on what you need. Screening Who needs it How often Alcohol misuse All women in this age group At routine exams Blood pressure All women in this age group Yearly checkup if your blood pressure is normal Normal blood pressure is less than 120/80 mm Hg If your blood pressure reading is higher than normal, follow the advice of your healthcare provider Breast cancer All women in this age group should talk with their healthcare providers about the needfor clinical breast exams (CBE)1 Clinical breast exam every 3 years1 Cervical cancer Women ages 21 and older Women between ages 21 and 29 should have a Pap test every 3 years; women between ages 30 and 65 are advised to have a Pap test plus an HPV test every 5 years Chlamydia Sexually active women ages 25 and younger, and women at increased risk for infection (suchas having multiple sex partners) Every year if you're at risk or have symptoms Depression All women in this age group At routine exams Type 2 diabetes, prediabetes All women with no symptoms who are overweight or obese and have 1 or more other risk factors for diabetes At least every 3 years. Also, testing for diabetes during after the 24th week. Type 2 diabetes, prediabetes All women diagnosed with gestational diabetes Lifelong testing every 3 years Type 2 diabetes All women with prediabetes Every year Gonorrhea Sexually active women at increased risk for infection At routine exams Hepatitis C Anyone at increased risk At routine exams HIV All women should be tested at least once for HIV between the ages of 13 and 64 At routine exams.Those with risk factors for HIV should be tested at least annually. Obesity All women in this age group At routine exams Syphilis Women at increased risk for infection should talk with their healthcare provider At routineexams Tuberculosis Women at increased risk for infection should talk with their healthcare provider Ask your healthcare provider Vision All women in this age group At least 1 complete exam in your 20s, and 2 in your 30s Vaccine2 Who needs it How often Chickenpox (varicella) All women in this age group who have no record of this infection or vaccine 2doses; the second dose should be given 4 to 8 weeks after the first dose Hepatitis A Women at increased risk for infection should talk with their healthcare provider 2 dosesgiven at least 6 months apart Hepatitis B Women at increased risk for infection should talk with their healthcare provider 3 dosesover 6 months; second dose should be given 1 month after the first dose; the third dose should be given at least 2 months after the second dose and at least 4 months after the first dose Haemophilus influenzaeType B (HIB) Women at increased risk for infection should talk with their healthcare provider 1 to 3 doses Human papillomavirus (HPV) All women in this age group up to age 26 3 doses; the second dose should be given 1 to 2 months after the first dose and the third dose given 6 months after the first dose Influenza (flu) All women in this age group Once a year Measles, mumps, rubella (MMR) All women in this age group who have no record of these infections or vaccines 1 or 2 doses Meningococcal Women at increased risk for infection should talk with their healthcare provider 1 or more doses Pneumococcal conjugate vaccine (PCV13)and pneumococcal polysaccharidevaccine(PPSV23) Women at increased risk for infection should talk with their healthcare provider PCV13: 1 dose ages 19 to 65 (protects against 13 types of pneumococcal bacteria) PPSV23: 1 to2 doses through age 64, or 1 dose at 65 or older (protects against 23 types of pneumococcal bacteria) Tetanus/diphtheria/pertussis (Td/Tdap) booster All women in this age group Td every 10 years, or a one-time dose of Tdap instead of a Td booster after age 18, then Td every 10 years Counseling Who needs it How often BRCA gene mutation testing for breast and ovarian cancer susceptibility Women with increased risk for having gene mutation When your risk is known Breast cancer and chemoprevention Women at high risk for breast cancer When your risk is known Diet and exercise Women who are overweight or obese When diagnosed, and then at routine exams Domestic violence Women at the age in which they are able to have children At routine exams Sexually transmitted infection prevention Women who are sexually active At routine exams Skin cancer Prevention of skin cancer in fair-skinned adults At routine exams Use of tobacco and the health effects it can cause All women in this age group Every visit 1 According to the ACS, women ages 20 to 39 years should have a clinical breast exam (CBE) as part of their routine health exam every 3 years. Breast self-exams are an option for women starting in their 20s.But the USPSTF does not recommend CBE. [employer] last reviewed this educational content on 12/04/201619993820-6687 [employer]. [address] [place] [address]. All rights reserved. This information is not intended as a substitute for professional medical care. Always follow your healthcare professional's instructions. Patient Education Understanding Compario MyPlate The USDA (U.S. Department of Agriculture) has guidelines to help you make healthy food choices. These are called MyPlate. MyPlate shows the food groups that make up healthy meals using the image of a place setting. Before you eat, think about the healthiest choices for what to put onto your plate or into your cup or bowl. To learn more about building a healthy plate, visit www.choosemyplate.gov. The food groups Fruits. Any fruit or 100% fruit juice counts as part of the Fruit Group. Fruits may be fresh, canned, frozen, or dried, and may be whole, cut-up, or pureed. Make half your plate fruits and vegetables. Vegetables. Any vegetable or 100% vegetable juice counts as a member of the Vegetable Group. Vegetables may be fresh, frozen, canned, or dried. They can be served raw or cooked and may be whole, cut-up, or mashed. Make half your plate fruits and vegetables. Grains. All foods made from grains are part of the Grains Group. These include wheat, rice, oats,cornmeal, and barley such as bread, pasta, oatmeal, cereal, tortillas, and grits. Grains should be no more than a quarter of your plate. At least half of your grains should be whole grains. Protein. This group includes meat, poultry, seafood, beans and peas, eggs, processed soy products(like tofu), nuts (including nut butters), and seeds. Make protein choices no more than a quarter ofyour plate. Meat and poultry choices should be lean or low fat. Dairy. All fluid milk products and foods made from milk that contain calcium, like yogurt and cheese, are part of the Dairy Group. (Foods that have little calcium, such as cream, butter, and cream cheese, are not part of the group.) Most dairy choices should be low-fat or fat-free. Oils. These are fats that are liquid at room temperature. They include canola, corn, olive, soybean, and sunflower oil. Foods that are mainly oil include mayonnaise, certain salad dressings, and soft margarines. You should have only 5 to 7 teaspoons of oils a day. You probably already get this muchfrom the food you eat. [employer] last reviewed this educational content on 10/04/201619999210-7411 [employer]. [address] [place] [address], [place] [address]. All rights reserved. This information is not intended as a substitute for professional medical care. Always follow your healthcare professional's instructions. Patient Education Pap Does this test have other names? Pap smear, cervical cytology, Papanicolaou test, Pap smear test, vaginal smear technique What is this test? This test checks the cells from inside the cervix for any changes that could lead to cancer. The cervix is the lower part of a woman's uterus that opens into the vagina. This test is named after Tomer Lopez MD, one of the healthcare providers whodeveloped this technique of testing for cervical cancer. Why do I need this test? You may need this test as a screening test to look for cervical cancer or changes in cervical cells that might eventually lead to cancer. Major medical groups generally recommend that women get regularPap tests every 3 years starting at age 21. Getting a regular Pap test can be life-saving. Cervical c ancer is one of the most serious types of cancer in women. If your test shows abnormal cells, your healthcare provider may be able to find and treat cervical problems right away, or stop cervical cancer before it becomes life-threatening. Pap tests can also diagnose serious infections and pelvic inflammation. What other tests might I have along with this test? You will likely have a pelvic exam along with this test. Depending on your age and other factors, your tissue samples may also be tested for human papillomavirus (HPV) infection at the same time your Pap test is done. Infection with some types of HPV puts you at risk for cervical cancer. If you have an abnormal Pap test result, your healthcare provider may order other tests. These may include: Colposcopy. Your cervix and vagina are looked at with a microscope called a colposcope, which magnifies any abnormal areas. Endocervical curettage. Cells are taken from the opening of your cervix with a spoon-shaped tool and looked at under a microscope. This may be done during the colposcopy. Biopsy. A small tissue sample is taken from your cervix and looked at under a microscope. This may be done during the colposcopy. What do my test results mean? Test results may vary depending on your age, gender, health history, the method used for the test, and other things. Your test results may not mean you have a problem. Ask your healthcare provider whatyour test results mean for you. Your results will either be normal or abnormal. If you get an abnormal result, this usually does notmean that you have cancer. It often means a minor cervical problem. Your healthcare provider may do another Pap test to confirm the initial results. Or he or she may recommend other tests such as colposcopy. Occasionally a lab test has a false-positive result. This means you do not have a cervical problem even though the test result shows you do. How is this test done? This test is done with a sample of cervical cells. For the test, you lie on your back with your knees bent and your feet in stirrups, then relax and spread your legs. As part of a pelvic exam, your healthcare provider first checks your vagina and reproductive organs for infections and health problems. Then yourprovider uses a device called a speculum to open the vagina. The provider examines your cervix and scrapes off a few cells from inside your cervix. Some women may have slight discomfort when the speculum is inserted. Does this test pose any risks? This test poses no known risks. What might affect my test results? Using vaginal lubricants, cleansers, contraceptives, or creams may mask your symptoms. Avoid using vaginal douches and abstain from sex for 2 days before an exam. Using these products or having sex maywash away or disguise abnormal cervical cells. How do I get ready for this test? It may seem like a good idea to wash up before having a Pap test, but this can actually erase the signs of a health problem. For accurate test results, avoid having sex or using tampons, douches, vaginal creams, deodorant sprays and powders, and contraceptive foams and jellies for 2 days before your exam. Don't have the test while you're menstruating. The ideal time to have a Pap test is 10 to 20 days after the first day of your last period. Be sure your healthcare provider knows about all medicines, herbs, vitamins, and supplements you aretaking. This includes medicines that don't need a prescription and any illicit drugs you may use. [employer] last reviewed this educational content on 12/04/201619993598-7111 [employer]. [address] [place] [address]. All rights reserved. This information is not intended as a substitute for professional medical care. Always follow your healthcare professional's instructions. documented in this encounter Progress Notes Kendra Yanez, WHCNP - 09/20/2019 1:15 PM CDT Chief complaint: Chief Complaint Patient presents with Well Woman Exam HPI the patient is here today for WWE and contraceptive management. She reports she is doing well for the most part but does report vaginal discharge. She reports she noticed it a couple of days ago. She declines all other associated symptoms today. She does report 2 new sexual partners since her lastvisit and reports that she recently got back with her partner. She reports she desires STI testing today, and reports she desires IUD for control. She reports her lmp was 7-12-20 and states her last intercourse was 09/18/19, she reports she had intercourse while she was on her cycle. Pt (denies) current or past physical, sexual or emotional abuse. Histories OB History Para Term AB Living 6 3 3 2 3 SAB TAB Ectopic Multiple Live Births 1 1 2 # Outcome Date GA Lbr Jhonny/2nd Weight Sex Delivery Anes PTL Lv 6 Term 04/09/11 40w0d 5 lb 6 oz (2.438 kg) M NORMAL SPONT BETO 5 Term 05/04/05 40w0d 7 lb 12 oz (3.515 kg) M NORMAL SPONT BETO 4 3 Term 2 TAB 1 SAB Past Medical History: Diagnosis Date Abnormal Pap smear 2003 HPV at age 18 Bacterial vaginosis 05/16/2013 Breakthrough bleeding on Nexplanon 09/16/2015 Depression childhood Depression 05/02/2012 not on meds Genital herpes 2009 not on meds Kidney disease 2011 kidney stone Meningitis due to bacteria 2014 STD (sexually transmitted disease) 2011 trichomonas STD (sexually transmitted disease) 2009 herpes Tobacco use disorder 05/02/2012 Family History Problem Relation Age of Onset Asthma Mother Hypertension Mother Neurological Mother Stroke Heart Maternal Grandmother Arthritis NoFHx defects NoFHx Colon Cancer NoFHx Ovarian Cancer NoFHx Uterine Cancer NoFHx Diabetes NoFHx Cancer NoFHx Depression NoFHx Mental retardation NoFHx High cholesterol NoFHx Osteoporosis NoFHx Psychiatry NoFHx Family Status Relation Name Status Mo MGMo NoFHx (Not Specified) Past Surgical History: Procedure Laterality Date CONTINUOUS MONITORING (EXTERNAL) 04/09/2011 INJECT EPIDURAL ANEST,LUMB,CONTINOUS 04/09/2011 OBSTE CARE,VAG DELIV+ 04/09/2011 OXYTOCIN INDUCTION/AUGMENTATION REFERENCE LINK ORDER 04/09/2011 UTERINE ACTIVITY MONITORING 04/09/2011 Social History Socioeconomic History Marital status: Single Spouse name: Not on file Number of children: 2 Years of education: 11 Highest education level: Not on file Occupational History 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: [employer] Social Needs Financial resource strain: Not on file Food insecurity: Worry: Not on file Inability: Not on file Transportation needs: Medical: Not on file Non-medical: Not on file Tobacco Use Smoking status: Current Some Day Smoker Packs/day: 0.05 Years: 4.00 Pack years: 0.20 Types: Cigarettes Start date: 04/29/2010 Smokeless tobacco: Never Used Tobacco comment: per pt smokes 1 cigarette a day Substance and Sexual Activity Alcohol use: Yes Alcohol/week: 2.0 standard drinks Types: 2 Cans of beer per week Frequency: 2-4 times a month Drinks per session: 1 or 2 Binge frequency: Never Comment: scial Drug use: No Sexual activity: Yes Partners: Male control/protection: None, Pill Comment: Last sexual intercourse 09/18/2019 Lifestyle Physical activity: Days per week: Not on file Minutes per session: Not on file Stress: Not on file Relationships Social connections: Talks on phone: Not on file Gets together: Not on file Attends orthodoxy service: Not on file Active member of [...] History Narrative No domestic violence or abuse Patient lives with boyfriend and children. Patient feels safe at home. Patient has 1 cat, son empties litter box. Social History Substance and Sexual Activity Sexual Activity Yes Partners: Male control/protection: None, Pill Comment: Last sexual intercourse 09/18/2019 Labs Labs are pending. Radiology No new radiology. Allergies Mary has No Known Allergies. Medications Mary has a current medication list which includes the following prescription(s): norgestimate-ethinyl estradiol, docusate calcium, ferrous sulfate, ibuprofen, and vitamin w/fa. Review of Systems Constitutional: Negative. HENT: Negative. Eyes: Negative. Respiratory: Negative. Breasts: Negative. Cardiovascular: Negative. Gastrointestinal: Negative. Genitourinary: Positive for vaginal discharge. Musculoskeletal: Negative. Skin: Negative. Neurological: Negative. Psychiatric/Behavioral: Negative. Endocrine: Endocrine negative BP 116/63 (BP Location: Left arm, Patient Position: Sitting, BP CUFF SIZE: Adult Medium) | Pulse 72 | Temp 36.8 C (98.3 F) (Oral) | Resp 16 | Ht 5' 6" (1.676 m) | Wt 185 lb 12.8 oz (84.3 kg) | LMP 09/15/2019 (Exact Date) | BMI 29.99 kg/m Pregravid BMI: Could not be calculated Physical Exam Vitals reviewed. Constitutional: She is oriented to person, place, and time. She appears well- developed and well-nourished. Her body habitus is normal. Neck: No tenderness and no mass. No thyroid nodules and no thyromegaly palpated. No neck adenopathy. Cardiovascular: Regular rate and rhythm. No gallop, no friction rub and no murmur auscultated. No peripheral edema present. Pulmonary/Chest: Breath sounds clear to auscultation. Normal inspiratory effort. Abdominal: Abdomen is soft. No mass palpated. No tenderness present. There is no hepatosplenomegaly,splenomegaly or hepatomegaly. There is no rigidity. No hernia palpated or inspected. Neuro/Psychiatric: She has a normal mood and affect. She is oriented to person, place, and time. Skin: No lesion, no rash and no ulceration present. Lymphadenopathy: No neck adenopathy present. No axillary adenopathy present. No inguinal adenopathy present. Genitourinary Comments: Hodan TIWARI student present during exam Breast: Right breast exhibits no mass, no nipple discharge and no tenderness. Left breast exhibits no mass, no nipple discharge and no tenderness. Breasts are symmetrical. Normal left breast and normalright breast Rectal: Rectal exam with normal anal tone. No mass, no external hemorrhoid and no internal hemorrhoid palpated or inspected. External genitalia: Normal external genitalia appropriate for age. Normal hair distribution. No labial lesion. Urethral meatus: Normal urethral meatus size, location and no lesion. No prolapse present. Normal urethral meatus Urethra: Normal urethra. No urethral tenderness, no mass and no urethral scarring palpated. Bladder: Bladder has no fullness, no mass palpated and no tenderness. Normal bladder Vagina:No lesion inspected. Normal estrogen effect. Normal support. Vaginal discharge found. +clue cells, +whiff test, +vaginal discharge Cervix: Normal cervix. No lesion. No tenderness and no discharge present. Uterus: Uterus is normal size, normal contour, normal position and non-tender. Normal uterus Adnexa: Right adnexa without tenderness, ovary enlargement or mass. Left adnexa without tenderness, ovary enlargement or mass. Normal left adnexa and normal right adnexa Anus/perineum: Normal perineum and normal anus. Assessment/Plan Return to clinic in 1 weeks. for IUD insert] Return to clinic in 1 year for WWE or sooner as needed Rubella/VZV: immune BMI: 29 [id number] Pap Smear 2018 Gardasil: na Mammogram:na Guaiac:na Colonoscopy:na Encounter for other contraceptive management (primary encounter diagnosis) Comment: return in 1 week for iud Plan: POCT TEST Screen for STD (sexually transmitted disease) Comment: as ordered Plan: GC & CHLAMYDIA AMPLIFIED ASSAY, TRICHOMONAS AMPLIFIED ASSAY, HIV 1/2 AG-AB WITH REFLEX BV (bacterial vaginosis) Comment: +clue cells, +whiff test, +vaginal discharge Plan: metroNIDAZOLE 500 mg tablet Is Wet Prep Result Normal or Abnormal?: (!) (P) Abnormal Well woman exam Comment: routine Plan: return in 1 year Over weight Comment: see bmi Plan: BMI discussed, appropriate weight gain, sensible diet, and exercise, increased fiber and waterintake and protein low in fat. Encouraged exercise for 30 min everyday; begin regimen with caution to prevent injury. Encouraged to decrease BMI to <25. This visit did not involve counseling and coordination that comprised more than 50% of the visit time. JUAN Hutton 09/20/2019 2:23 PM Bianca Lindquist 09/20/2019 1:15 PM CDT34 year old presented to the clinic for WWE. 1) Previous BCM: OCP 2) Desired BCM: IUD 3) LMP: 09/18/2019 4) Last [place]: 09/18/2019 5) Last Pap: 02/202018 Results: Neg HPV Results Neg 6) Tdap in last 10 years? 02/25/2019 7) HPV Vaccines 05/02/2012 8) C/O N/a 9) Patient no history of physical, emotional, or sexual abuse. Patient states she currently feels safe at home. documented in this encounter Plan of Treatment Date Type Specialty Care Team Description 09/27/2019 Office Visit OB Satellites Silva Yanez, [facility] [address], [place] [address] [phone] Name Type Priority Associated Diagnoses Date/Ti me GC & CHLAMYDIA AMPLIFIED LAB Routine Screen for STD ( sexually 09/20/2019 2:46 PM ASSAY transmitted disease) CDT TRICHOMONAS AMPLIFIED LAB Routine Screen for STD (sex ually 09/20/2019 2:46 PM ASSAY transmitted disease) CDT Health Maintenance Due Date Last Done Comments INFLUENZA VACCINE (#1) 2019 01/18/2019, 04/10/2011 Depression Screening 06/19/2020 06/20/2019 PAP SMEAR 02/22/2021 02/22/2018, 09/02/2014, 06/01/2011, Additional history exists DTaP,Tdap,and Td Vaccines (2 - 02/25/2029 02/25/2019 Td) PNEUMOCOCCAL 0-64 YEARS COMBINED Discontinued SERIES documented as of this encounter Procedures Procedure Name Priority Date/Time Associated Diagnosis Comme nts HIV 1/2 AG-AB WITH Routine 09/20/2019 2:44 Screen for STD Res ults for this REFLEX PM CDT (sexually transmitted proced ure are in disease) the results section. POCT Routine 09/13/2019 Encounter for other Result s for this TEST contraceptive procedure are in management the results section. documented in this encounter Results HIV 1/2 AG-AB WITH REFLEX (09/20/2019 2:44 PM CDT) Pathologist Sig nature HIV 1/2 Ag-Ab with Negative Negative [facility] HIV Semi-quantitative 0.07 [facility] Specimen Blood - ARM, LEFT Narrative Performed At Non-reactive for HIV-1 antigen and HIV-1/HIV-2 antibod ies. [facility] No laboratory evidence of HIV infection. Repeat in 2-4 weeks if acute HIV infection is suspected. Performing Organization Address City/State/Zipcode Phone Number [facility] CLIA: [id number], [address] [place], [place] [address] [facility] POCT TEST (09/13/2019) Pathologist Sig nature POCT PREG Negative On board controls acceptable Yes with C Line POCT PREG LOT # POCT PREG TEST DATE Specimen Urine - URINE, CLEAN CATCH documented in this encounter Visit Diagnoses Diagnosis Encounter for other contraceptive manage ment - Primary Screen for STD (sexually transmitted dis ease) Screening examination for venereal disea se BV (bacterial vaginosis) Vaginitis and vulvovaginitis, unspecifie d Well woman exam Routine general medical examination at a health care facility Over weight Overweight documented in this encounter Insurance Payer Benefit Plan / Subscriber ID Effective Phone Address T [employer]pe [employer] [facility] xxxxxxxxx 2018-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
--- OUTSIDE RECORDS SUMMARY | 2019-12-17 19:07 | XMS REPORT | Summary of Care ---
:1985 Author Organization [facility] Address [address] [place] [id number] Care Team Providers Name Role Phone Marcella Yanez DAVIN Primary Care Provider Reason for Visit Reason Comments Well Woman Exam Encounter Details Date Type Department Care Team Description 09/20/2019 Office Visit [facility]- Kendra Yanez for other contraceptive management (Primary Dx); JUAN Desai Screen for STD (sexually transmitted dis ease); [address] BV (bacterial vaginosis); Street ROSALIA A Well woman exam; [place], [place] [address] Over weight [id number] Allergies No Known Allergiesdocumented as of this [...] Papanicolaou smear negative within last 12 mo [facility] 02/22/2019 Overview: Nil pap 12-18-18 see scanned [...] Obesity 11/26/2014 11/26/2014 Overview: ICD10 Diagnosis 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 BV (bacterial vaginosis) 11/26/2014 05/05/2015 Screen for STD (sexually transmitted disease) 11/26/2014 02/22/[address] 11/26/2014 04/29/2016 Overweight 11/26/2014 05/05/2015 Overview: ICD10 Diagnosis 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 Yearly breast exams [...] Guidelines for having clinical breast exams The [employer]st[employer] and Gynec[employer] recommends that [...] provider about what is best for you. [employer] last reviewed this educational content on 10/04/201619994650-9922 [employer]. [address] [place] [address]. All rights reserved. This information is not [...] history of breast cancer (progestin IUD only) [employer] last reviewed this educational content on 05/04/201619998018-6943 [employer]. [address] [place] [address]. All rights reserved. This information is not [...] napkin before you eat it. Instead of czech fries, choose a baked potato with salsa. Tip Fast-food restaurants often have printed nutrition information available. Ask for this information and look up your favorite items before you order. [employer] last reviewed this educational content on 08/04/201619990398-4791 [employer]. [address] [place] [address]. All rights reserved. This information is not [...] having a miscarriage, stillbirth, premature , or sby-nahka-lylwtj baby Personal benefits ___ Feel more in [...] up all tobacco products. For more information https://smokefree.gov/wzxd-gw-de-expert National Cancer [place] Smoking Quitline: 508-09K-FKTC (060-157-1745) [employer] last reviewed this educational content on 04/06/201619999175-0166 [employer]. [address] [place] [address]. All rights reserved. This information is not [...] 20s.But the USPSTF does not recommend CBE. [employer] last reviewed this educational content on 12/04/201619995014-6644 [employer]. [address] [place] [address]. All rights reserved. This information is not intended as a substitute for professional medical care. Always follow your healthcare professional's instructions. Patient Education Understanding [employer] MyPlate The USDA (U.S. Department of Agriculture) [...] get this muchfrom the food you eat. [employer] last reviewed this educational content on 10/04/201619994390-0624 [employer]. [address] [place] [address], [place] [address]. All rights reserved. This information is not [...] and any illicit drugs you may use. [employer] last reviewed this educational content on 12/04/201619992021-9528 [employer]. [address] [place] [address]. All rights reserved. 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 02/25/2019 7) HPV Vaccines 05/02/2012 8) C/O N/a 9) Patient no history of physical, emotional, or sexual abuse. Patient states she currently feels safe at home. documented in this encounter Plan of Treatment Date Type Specialty Care Team Description 09/27/2019 Office Visit OB Satellites Silva Yanez, [facility] [address], [place] [address] [phone] Name Type Priority Associated Diagnoses Date/Ti me [...] nature HIV 1/2 Ag-Ab with Negative Negative [facility] HIV Semi-quantitative 0.07 [facility] Specimen Blood - ARM, LEFT Narrative Performed At Non-reactive for HIV-1 antigen and HIV-1/HIV-2 antibod ies. [facility] No laboratory evidence of HIV infection. Repeat in 2-4 weeks if acute HIV infection is suspected. Performing Organization Address City/State/Zipcode Phone Number [facility] CLIA: [id number], [address] [place], [place] [address] [facility] POCT TEST (09/13/2019) Pathologist Sig nature POCT [...] ID Effective Phone Address T ype [employer] [facility] xxxxxxxxx 2018-[place] 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
--- OUTSIDE RECORDS SUMMARY | 2019-12-17 19:08 | XMS REPORT | Summary of Care ---
:[address] [facility] Address [address] [place] [address] Care Team Providers Name Role Phone Marcella Mcdonough Primary Care Provider Reason for Visit Reason Comments INTRAUTERINE DEVICE Insert Encounter Details Date Type Department Care Team Description 10/11/[address] [facility]- Kendra Mcdonough control counseling (Primary Dx); JUAN Desai Encounter for IUD insertion; [address] [facility] [address] Screening for STD (sexually transmitted disease) [facility] [place], [place] [phone] Allergies No Known Allergiesdocumented as of this encounter (statuses as of 10/11/2019) Medications Medication Sig Dispensed Refills Start Date [...] mouth 2 (two) (bacterial vaginosis) times daily. Hospital, Clinic, Ordered Dose Route Frequency Start Date End Date Status or Other Facility Administered Medication copper (PARAGARD T 1 Intra Intrauterine ONCE 10/11/2019 020 Ended 380A) IUD 1 Intra Uterine Device Uterine Device documented as of this encounter (statuses as of 10/11/2019) Active Problems Problem Noted Date Encounter for IUD insertion 10/11/2019 Over weight 09/20/2019 Well woman exam 09/20/2019 Other general counseling and advice for contraceptive management 06/20/2019 Cervical Papanicolaou smear negative within last 12 mo [facility] 02/22/2019 Overview: Nil pap -- see scanned records History of herpes genitalis 02/11/2019 Overview: suppression at 36 weeks History of depression 04/29/2016 Contraceptive management 11/26/2014 Overview: Nexplanon insertion 2013, removal 2016 IUD insertion 2016, removal 2018 documented as of this encounter (statuses as of 10/11/2019) Resolved Problems Problem Noted Date Resolved Date [...] Obesity 11/26/2014 11/26/2014 Overview: ICD10 Diagnosis Term 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 Card 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 Normal spontaneous vaginal delivery 04/09/201104/07 Post term , antepartum condition or complication 04/09/2011 documented as of this encounter (statuses as of 10/11/2019) Immunizations Name Administration Dates Next Due HPV [...] Assigned at Date Recorded Not on file COVID-19 Exposure Response Date Recorded In the last month, have you been in contact with No / Unsure 10/11/2019 3:38 PM CDT someone who was confirmed or suspected to have Coronavirus / COVID-19? documented as of this encounter Last Filed Vital Signs Vital Sign Reading Time Taken Comments Blood Pressure 104/67 10/11/2019 3:39 PM CDT Pulse 100 10/11/2019 3:39 PM CDT Temperature 37.3 C (99.1 F) 10/11/2019 3:39 PM CDT Respiratory Rate 16 10/11/2019 3:39 PM CDT Oxygen Saturation - - Inhaled Oxygen Concentration - - Weight 85.4 kg (188 lb 3 oz) 10/11/2019 3:39 PM CDT Height 167.6 cm (5' 6") 10/11/2019 3:39 PM CDT Body Mass Index 30.37 10/11/2019 3:39 PM CDT documented in this encounter Progress Notes Kendra Mcdonough WHCNP - 10/11/2019 3:45 PM CDTIUD INSERTION PROCEDURE NOTE Preoperative Diagnoses: desires IUD The risks, benefits and alternatives were discussed. The patient voiced her understanding. She wished to proceed and an informed consent was obtained. Patient has been identified with name and and will be undergoing IUD placement. Indications for paragaurd are: desires. Patient, procedure and site have been confirmed by the following clinicians: Love mcdonough DNP and Bruna Hoffmann RN . Timeout performed by JUAN Hutton at 1610. Procedure: The patient is placed on the exam table in a supine position. Vaginal speculum inserted.The cervix was cleansed with Betadine. Uterus sounded to 8 cm. IUD inserted without difficulty. String visible and trimmed. The patient tolerated the procedure well and there were no complications. Patient was able to feel strings. Post-procedure instructions given. Patient verbalized understanding. Findings/Assessment IUD inserted successfully, patient tolerated procedure well Plan Return to clinic in 6 weeks. ParaGard Lot #: [id number] Expiration date: 09/2025 documented in this encounter Plan of Treatment Date Type Specialty Care Team Description 11/22/2019 Office Visit [facility] Silva Mcdonough [facility]CNP [address] [place], [place] [address] [phone] Name Type Priority Associated Diagnoses Date/Ti me HIV 1/2 AG-AB WITH LAB Routine Screening for STD 09/2019 4:02 PM CDT REFLEX (sexually transmitted disease) [facility] ONLY - [facility] Routine Screening for STD 4:02 PM CDT IGG/IGM (sexually transmitted disease) GC & [facility] LAB Routine Screening for STD 10/11/19 4:03 PM CDT AMPLIFIED ASSAY (sexually transmitted disease) Health Maintenance Due Date Last Done Comments INFLUENZA VACCINE (#1) 2019 01/18/2019, 04/10/2011 Depression Screening 06/19/2020 06/20/2019 PAP SMEAR 02/22/2021 02/22/2018, 09/02/2014, 06/01/2011, Additional history exists DTaP,Tdap,and Td Vaccines (2 - 02/25/2029 02/25/2019 Td) PNEUMOCOCCAL 0-64 YEARS COMBINED Discontinued SERIES documented as of this encounter Procedures Procedure Name Priority Date/Time Associated Diagnosis Comme nts POCT TEST Routine 10/11/2019 3:42 PM control Results for this CDT counseling procedure are i n the results section. documented in this encounter Results POCT TEST (10/11/2019 3:42 PM CDT) Pathologist Sig nature POCT PREG Negative On board controls acceptable Yes with C Line POCT PREG LOT # POCT PREG TEST DATE Specimen Urine - URINE, CLEAN CATCH documented in this encounter Visit Diagnoses Diagnosis control counseling - Primary General counseling for initiation of oth er contraceptive measures Encounter for IUD insertion Encounter for insertion of intrauterine contraceptive device Screening for STD (sexually transmitted disease) Screening examination for venereal disea se documented in this encounter Administered Medications Medication Order MAR Action Action Date Dose Rate Site copper (PARAGARD T 380A) Given 10/11/2019 4:23 PM 1 Intra Uteri ne IUD 1 Intra Uterine CDT Device Device 1 Intra Uterine Device, Intrauterine, ONCE, 1 dose, Mon10/11/19 at 1730, Routine documented in this encounter Insurance Payer Benefit Plan / Subscriber ID Effective Phone Address T ype Group Dates [facility] [id number] 2018-Karson 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
--- OUTSIDE RECORDS SUMMARY | 2019-12-17 19:08 | XMS REPORT | Summary of Care ---
:1985 Author Organization [facility] Address [address] [place] [address] Care Team Providers Name Role Phone Marcella Yanez [facility] Primary Care Provider Reason for Visit Reason Comments INTRAUTERINE DEVICE Encounter Details Date Type Department Care Team Description 09/27/2019 Office Visit [facility]- Kendra [facility]anez [facility] [address] Dx) [place], [place] [phone] Allergies No Known Allergiesdocumented as of this encounter (statuses as of 09/30/2019) Medications Medication Sig Dispensed Refills Start Date [...] as of this encounter (statuses as of 09/30/2019) Active Problems Problem Noted Date Over weight 09/20/2019 Well woman exam 09/20/2019 Other general counseling and advice for contraceptive management 06/20/2019 Cervical Papanicolaou smear negative within last 12 mo 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 Normal spontaneous vaginal delivery 04/09/201104/07 Post term , antepartum condition or complication 04/09/2011 documented as of this encounter (statuses as of 09/30/2019) Immunizations Name Administration Dates Next Due HPV [...] been in contact with No / Unsure 09/27/2019 2:57 PM CDT someone who was confirmed or suspected to have Coronavirus / COVID-19? documented as of this encounter Last Filed Vital Signs Vital Sign Reading Time Taken Comments Blood Pressure 120/81 09/27/2019 2:57 PM CDT Pulse 107 09/27/2019 2:57 PM CDT Temperature 36.6 C (97.9 F) 09/27/2019 2:57 PM CDT Respiratory Rate 16 09/27/2019 2:57 PM CDT Oxygen Saturation - - Inhaled Oxygen Concentration - - Weight 84 kg (185 lb 2 oz) 09/27/2019 2:57 PM CDT Height 167.6 cm (5' 6") 09/27/2019 2:57 PM CDT Body Mass Index 29.88 09/27/2019 2:57 PM CDT documented in this encounter Progress Notes Taryn Figueredo LVN - 09/27/2019 2:30 PM CDTPatient here for IUD removal, stated last intercourse was this morning and did not use protection. Informed patient to RTC in 2 weeks and remain abstinence until appointment and IUD can be inserted. documented in this encounter Plan of Treatment Date Type Specialty Care Team Description 10/14/2019 [facility] [address] [place], [place] [address] [phone] Health Maintenance Due Date Last Done Comments INFLUENZA VACCINE (#1) 2019 01/18/2019, 04/10/2011 Depression Screening 06/19/2020 06/20/2019 PAP SMEAR 02/22/2021 02/22/2018, 09/02/2014, 06/01/2011, Additional history exists DTaP,Tdap,and Td Vaccines (2 - 02/25/2029 02/25/2019 Td) PNEUMOCOCCAL 0-64 YEARS COMBINED Discontinued SERIES documented as of this encounter Procedures Procedure Name Priority Date/Time Associated Diagnosis Comme nts POCT TEST Routine 09/27/2019 4:07 PM control Results for this CDT counseling procedure are i n the results section. documented in this encounter Results POCT TEST (09/27/2019 4:07 PM CDT) Pathologist Sig nature POCT PREG Negative On board controls acceptable Yes with C Line POCT PREG LOT # POCT PREG TEST DATE Specimen Urine - URINE, CLEAN CATCH documented in this encounter Visit Diagnoses Diagnosis control counseling - Primary General counseling for initiation of oth er contraceptive measures documented in this encounter Insurance Payer Benefit Plan / Subscriber ID Effective Phone Address T ype Group Dates [facility] xxxxxxxxx 2018-Prese [address] Medic aid HEALTH CHOICE - HEALTH CHOICE nt [id number] 1 MANAGED MEDICAID [place], [place]ID [phone] documented as of this encounter Advance Directives Type Date Recorded Patient Primary Care Sales Representative Explanati on Advance Directives and Living Will Power of Tester Food Products Name Relationship Healthcare Agent Relationship Co mmunication Jairo Kaminski Life Partner Primary healthcare agent
--- OUTSIDE RECORDS SUMMARY | 2019-12-17 19:08 | XMS REPORT | Summary of Care ---
:1985 Author Organization [facility] Address [address] [place] [address] Care Team Providers Name Role Phone Marcella Mcdonough Primary Care Provider Reason for Visit Reason Comments INTRAUTERINE DEVICE Insert Encounter Details Date Type Department Care Team Description 10/11/2019 Office Visit [facility]- Kendra Mcdonough control counseling (Primary Dx); JUAN Desai Encounter for IUD insertion; [address] [facility] [address] Screening for STD (sexually transmitted disease) 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 ParaGard Lot #: [id number] Expiration date: 09/2025 documented in this encounter Plan of Treatment Date Type Specialty Care Team Description 11/22/2019 Office Visit [facility] Silva Mcdonough [facility] [address] [place], [place] [address] [phone] Name Type Priority Associated Diagnoses Date/Ti me [...] Effective Phone Address T ype Group Dates [facility] [id number] 2018-Karson 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
--- OUTSIDE RECORDS SUMMARY | 2019-12-17 19:08 | XMS REPORT | Summary of Care ---
:1985 Author Organization [facility] Address [address] [place] [address] Care Team Providers Name Role Phone Marcella Yanez [facility] Primary Care Provider Reason for Visit Reason Comments INTRAUTERINE DEVICE Encounter Details Date Type Department Care Team Description 09/27/2019 Office Visit [facility]- Kendra Yanez [facility] control [facility] [address] Dx) [place], [place] [phone] Allergies No Known [...] Papanicolaou smear negative within last 12 mo [facility] 02/22/2019 Overview: Nil pap 12-18-18 see [...] Obesity 11/26/2014 11/26/2014 Overview: ICD10 Diagnosis 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 BV (bacterial vaginosis) 11/26/2014 05/05/2015 Screen for STD (sexually transmitted disease) 11/26/2014 02/22/[address] 11/26/2014 04/29/2016 Overweight 11/26/2014 05/05/2015 Overview: ICD10 Diagnosis 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 Medic aid HEALTH CHOICE - HEALTH CHOICE nt [id number] 1 MANAGED MEDICAID [place], [place] [phone] documented as of this encounter Advance Directives Type Date Recorded Patient Dyehouse Worker Explanati on Advance Directives and Living Will Power of Demand Inspector Name Relationship Healthcare Agent Relationship Co mmunication Jairo Kaminski Life Partner Primary healthcare agent
--- OUTSIDE RECORDS SUMMARY | 2019-12-17 19:09 | XMS REPORT | Summary of Care ---
:1985 Author Organization [facility] Address [address] [place] [address] Care Team Providers Name Role Phone Marcella Yanez Primary Care Provider Encounter Details Date Type Department Care Team Description 10/11/2019 Orders Only [facility] Doctor Unassigned, No [address] [facility] Name [place] [phone] [place] [phone] Allergies No Known Allergiesdocumented as of this encounter (statuses as of 10/14/2019) Medications Medication Sig Dispensed Refills Start Date [...] as of this encounter (statuses as of 10/14/2019) Active Problems Problem Noted Date Encounter for IUD insertion 10/11/2019 Over weight 09/20/2019 Well woman exam 09/20/2019 Other general counseling and advice for contraceptive management 06/20/2019 Cervical Papanicolaou smear negative within last 12 mo [facility] 02/22/2019 Overview: Nil pap 12-18-18 see scanned records History of herpes genitalis 02/11/2019 Overview: suppression at 36 weeks History of depression 04/29/2016 Contraceptive management 11/26/2014 Overview: Nexplanon insertion 2013, removal 2015 IUD insertion 2016, removal 2017 documented as of this encounter (statuses as of 10/14/2019) Resolved Problems Problem Noted Date Resolved Date [...] Obesity 11/26/2014 11/26/2014 Overview: ICD10 Diagnosis Term Fine Arts Model Utility BV (bacterial vaginosis) 11/26/2014 05/05/2015 Screen for STD (sexually transmitted disease) 11/26/2014 02/22/[address] 11/26/2014 04/29/2016 Overweight 11/26/2014 05/05/2015 Overview: ICD10 Diagnosis Term Fine Arts Model Utility Bacterial vaginosis 05/16/2013 11/26/2014 Encounter for routine gynecological examination 05/02/2012 11/26/2014 Overview: ICD10 Diagnosis Term Fine Arts Model Utility Tobacco use disorder 05/02/2012 05/05/2015 Abdominal pain, epigastric 05/02/2012 05/16/2013 Depression 05/02/2012 11/26/2014 Overview: Denies suicidal ideations. Normal spontaneous vaginal delivery 04/09/201104/07 Post term , antepartum condition or complication 04/09/2011 documented as of this encounter (statuses as of 10/14/2019) Immunizations Name Administration Dates Next Due HPV [...] of this encounter Last Filed Vital Signs Not on filedocumented in this encounter Plan of Treatment Date Type Specialty Care Team Description 11/22/2019 [facility] [address] [place], [place] [address] [phone] Health Maintenance Due Date Last Done Comments INFLUENZA VACCINE (#1) 2019 01/18/2019, 04/10/2011 Depression Screening 06/19/2020 06/20/2019 PAP SMEAR 02/22/2021 02/22/2018, 09/02/2014, 06/01/2011, Additional history exists DTaP,Tdap,and Td Vaccines (2 - 02/25/2029 02/25/2019 Td) PNEUMOCOCCAL 0-64 YEARS COMBINED Discontinued SERIES documented as of this encounter Procedures Procedure Name Priority Date/Time Associated Diagnosis Comme nts DISCLOSURE AND CONSENT, Routine 10/11/2019 12:01 AM MEDICAL AND SURGICAL CDT PROCEDURES documented in this encounter Results Not on filedocumented in this encounter Insurance Payer Benefit Plan / Subscriber ID Effective Phone Address T [facility] [id number] 2018-Karson P.Olivia DICKERSON Medic aid HEALTH CHOICE - HEALTH CHOICE nt [id number] 1 MANAGED MEDICAID [place], [place]ID [phone] documented as of this encounter Advance Directives Type Date Recorded Patient Customer Pricing Manager Explanati on Advance Directives and Living Will Power of Head Worker Name Relationship Healthcare Agent Relationship Co mmunication Jairo Kaminski Life Partner Health Care Agent
--- OUTSIDE RECORDS SUMMARY | 2019-12-17 19:09 | XMS REPORT | Summary of Care ---
:1985 Author Organization [facility] Address [address] [place] [address] Care Team Providers Name Role Phone Marcella Mcdonough Primary Care Provider Reason for Visit Reason Comments INTRAUTERINE DEVICE Insert Encounter Details Date Type Department Care Team Description 10/11/2019 Office Visit [facility]- Kendra Mcdonough control counseling (Primary Dx); JUAN Desai Encounter for IUD insertion; [address] [facility] [address] Screening for STD (sexually transmitted disease) [facility] [place], [place] [phone] Allergies No Known Allergiesdocumented as of this [...] Papanicolaou smear negative within last 12 mo [facility] 02/22/2019 Overview: Nil pap -- see [...] Obesity 11/26/2014 11/26/2014 Overview: ICD10 Diagnosis Term 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 Utility BV (bacterial vaginosis) 11/26/2014 05/05/2015 Screen for STD (sexually transmitted disease) 11/26/2014 02/22/[address] 11/26/2014 04/29/2016 Overweight 11/26/2014 05/05/2015 Overview: ICD10 Diagnosis Term 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 Last date of sexual intercourse was 09/06/2019. LMP 09/15/2019 UPT negative. Informed consent signed and obtained from pt Pt instructed to use a back up control method for the first 7 days, side effects and ER warnings discussed, verbalized understanding. Nexplanon (lot:[id number] exp:08/2025) dispensed from clinic stock to provider for placement. MARKUS COOK RN 10/11/2019 4:42 PM Kendra Mcdonough DAVIN - 10/11/2019 3:45 PM CDTIUD INSERTION PROCEDURE [...] the following clinicians: Love mcdonough DNP and Markus Hoffmann RN . Timeout performed by JUAN [...] Plan Return to clinic in 6 weeks. DedrickGard Lot #: [id number] Expiration date: 09/2025 documented in this encounter Plan of Treatment Date Type Specialty Care Team Description 11/22/2019 Office Visit [facility] Silva Mcdonough [facility] [address] [place], [place] [address] [phone] Name Type Priority Associated Diagnoses Date/Ti me [...] / Subscriber ID Effective Phone Address T e Group [facility] [id number] 2018-Karson [address] Medic aid HEALTH CHOICE - HEALTH CHOICE nt [id number] 1 MANAGED MEDICAID [place], [place]ID [phone] documented as of this encounter Advance Directives Type Date Recorded Patient House Player Explanati on Advance Directives and Living Will Power of Research Specialist Name Relationship Healthcare Agent Relationship Co mmunication Jairo Kaminski Life Partner Health Care Agent
--- NOTE | 2019-12-17 20:00 | RAD REPORT ---
EXAM DESCRIPTION: RAD - Humerus Left - 12/17/2019 7:46 pm CLINICAL HISTORY: Nontraumatic left arm pain COMPARISON: None. FINDINGS: No fracture is identified. There is no dislocation or periosteal reaction noted. No forei gn body or other soft tissue abnormality. IMPRESSION: Negative left humerus examination.
--- NOTE | 2019-12-17 20:29 | EDPHYS ---
Physician Documentation [facility] Name: Mary Stokes Age: 34 yrs Sex: Female : 1985 Arrival Date: 12/17/2019 Time: 19:06 Bed 17 Private MD: ED Physician Dylan Dent HPI: 12/16 19:35 This 34 yrs old Female presents to ER via Ambulatory with complaints of Arm cp Pain. 19:35 The patient or guardian complains of pain, that is acute. The complaints affect the cp left bicep. 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 - Social history:: Smoking status: Patient reports the use of cigarette tobacco products, smokes one-half pack cigarettes per day. Vital Signs: 19:09 BP 128 / 82; Pulse 72; Resp 17 S; Temp 98.1(O); Pulse Ox 100% on R/A; Weight 81.65 kg jd3 (R); Height 5 ft. 5 in. (165.10 cm) (R); Pain 7/10; 20:15 BP 122 / 70; Pulse 80; Resp 18; Temp 98; Pulse Ox 100% on R/A; mg2 19:09 Body Mass Index 29.95 (81.65 kg, 165.10 cm) jd3 MDM: 19:17 Patient medically screened. cp 12/16 19:32 Order name: XRAY Humerus LEFT cp Administered Medications: No medications were administered Disposition: 12/17/19 20:28 Discharged to Home. Impression: Pain in left upper arm. - Condition is Stable. - Discharge Instructions: Musculoskeletal Pain. - Prescriptions for Ibuprofen 800 mg Oral Tablet - take 1 tablet by ORAL route every 8 hours As needed take with food; 30 tablet. - Medication Reconciliation Form, Thank You Letter, Antibiotic Education, Prescription Opioid Use form. - Follow up: Private Physician; When: 2 - 3 days; Reason: Worsening of condition. - Problem is new. - Symptoms have improved. Addendum: 12/19/2019 07:05 Co-signature as Attending Physician, Dylan Dent MD. m Signatures: Dispatcher [employer] EDMS Alex Lord PA PA cp Davies, Jonathon RN RN jd3 Daniel Alford RN RN mg2 Dylan Dent MD MD mh7 Corrections: (The following items were deleted from the chart) 12/16 20:37 20:28 12/17/2019 20:28 Discharged to Home. Impression: Pain in left upper arm. mg2 Condition is Stable. Forms are Medication Reconciliation Form, Thank You Letter, Antibiotic Education, Prescription Opioid Use. Follow up: Private Physician; When: 2 - 3 days; Reason: Worsening of condition. Problem is new. Symptoms have improved. cp
--- NOTE | 2019-12-17 20:29 | ER ---
Nurse's Notes [facility] Name: Mary Stokes Age: 34 yrs Sex: Female : 1985 Arrival Date: 12/17/2019 Time: 19:06 Bed 17 Private MD: Diagnosis: Pain in left upper arm Presentation: 12/16 19:07 Chief complaint: Patient states: "I am having sever left arm pain that came on accouple jd3 of hours ago.". Coronavirus screen: At this time, the client does not indicate any symptoms associated with coronavirus-19. Ebola Screen: Patient negative for fever greater than or equal to 101.5 degrees Fahrenheit, and additional compatible Ebola Virus Disease symptoms. Initial Sepsis Screen: Does the patient meet any 2 criteria? No. Patient's initial sepsis screen is negative. Does the patient have a suspected source of infection? No. Patient's initial sepsis screen is negative. Risk Assessment: Do you want to hurt yourself or someone else? Patient reports no desire to harm self or others. Onset of symptoms was December 17, 2019. 19:07 Method Of Arrival: Ambulatory jd3 19:07 Acuity: [place] 3 jd3 Triage Assessment: 20:00 General: Appears in no apparent distress. comfortable, Behavior is calm, cooperative. 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 - Social history:: Smoking status: Patient reports the use of cigarette tobacco products, smokes one-half pack cigarettes per day. Screenin:30 Abuse screen: Denies threats or abuse. Denies injuries from another. Nutritional mg2 screening: No deficits noted. Tuberculosis screening: No symptoms or risk factors identified. Fall Risk None identified. Assessment: 20:00 General: Appears in no apparent distress. comfortable. Pain: Complains of pain in left mg2 arm Pain at worst was 4 out of 10 on a pain scale. Quality of pain is described as aching, Pain began gradually, 1 day ago. Is intermittent. Neuro: Level of Consciousness is awake, alert, obeys commands, Oriented to person, place, time, situation. Cardiovascular: Capillary refill < 3 seconds Patient's skin is warm and dry. Respiratory: No deficits noted. GI: No signs and/or symptoms were reported involving the gastrointestinal system. : No signs and/or symptoms were reported regarding the genitourinary system. EENT: No signs and/or symptoms were reported regarding the EENT system. Derm: Skin is intact, is healthy with good turgor, Skin is pink, warm \\T\\ dry. normal. Musculoskeletal: Circulation, motion, and sensation intact. Capillary refill < 3 seconds. Vital Signs: 19:09 BP 128 / 82; Pulse 72; Resp 17 S; Temp 98.1(O); Pulse Ox 100% on R/A; Weight 81.65 kg jd3 (R); Height 5 ft. 5 in. (165.10 cm) (R); Pain 7/10; 20:15 BP 122 / 70; Pulse 80; Resp 18; Temp 98; Pulse Ox 100% on R/A; mg2 19:09 Body Mass Index 29.95 (81.65 kg, 165.10 cm) j ED Course: 19:06 Patient arrived in ED. mr 19:08 Triage completed. jd3 19:11 Arm band placed on. jd3 19:12 Alex Lord PA is PHCP. cp 19:12 Dylan Dent MD is Attending Physician. cp 19:12 Liza Abernathy RN is Primary Nurse. ca1 19:46 XRAY Humerus LEFT In Process Unspecified. EDMS 20:00 Patient has correct armband on for positive identification. Door closed. mg2 20:30 No provider procedures requiring assistance completed. Patient did not have IV access mg2 during this emergency room visit. Administered Medications: No medications were administered Outcome: 20:28 Discharge ordered by MD. cp 20:37 Discharged to home ambulatory. mg2 20:37 Condition: good 20:37 Discharge instructions given to patient, Instructed on discharge instructions, follow up and referral plans. medication usage, Demonstrated understanding of instructions, follow-up care, medications, Prescriptions given X 1. 20:37 Patient left the ED. mg2 Signatures: Dispatcher [employer] EDTN Ellyn Bhardwaj mr Alex Lord PA PA Derrek Ferreira RN RN jDaniel Araiza RN RN mg2 Liza Abernathy, RN RN ca1
[2019-12-17 20:51] VITALS: BP 128/82; TEMP 98.1; O2SAT 100
== END 2019-12-17 20:37 | disposition home or self-care (01) ==
LOC: ER 19:04
DX: M79.622 Pain in left upper arm (principal); F17.210 Nicotine dependence, cigarettes, uncomplicated
CPT/HCPCS: 99283

== ENCOUNTER 2021-01-23 10:02 | Inpatient (IN) | payer OTHER ==
--- OUTSIDE RECORDS SUMMARY | 2021-01-23 10:05 | XMS REPORT | Continuity of Care Document ---
:1985 Author Organization [facility] t Address [address] [place] [address] Care Team Providers Name Role Phone Marcella Patel Primary Care Physician LARRY BARKER Attending Clinician Unavailable Larry Sellers Attending Clinician Marcella LEMUS Attending Clinician Unavailable Marcella Patel Attending Clinician Doctor Unassigned, Name Attending Clinician Unavailable Maria Teresa MACHADO Attending Clinician Unavailable Payers Payer Name Policy Type Policy Number Effective Date Expiration Date [facility] [id number] 2018 CHOICE MEDICAID 00:00:00 Problems Condition Condition Condition Status Onset Resolution Last Treating Co mments Source Name Details Category Date Date Treatment Clinician Date Encounter Encounter Disease Active 2020-0 Uni vers for IUD for IUD 8-07 [place] [facility] [place] Over Over Disease Active 2020-0 Univers weight weight 7-17 ity of 00:00: [place] [facility] Well woman Well woman Disease Active 2020-0 U nivers exam exam 7-17 ity of 00:00: [address] Other Other Disease Active 2020-0 Univers general general 4-16 [place] of counseling [place] advice and advice 00 Wy dical for for Branch contracept contracept loli loli management management Cervical Cervical Disease Active 2018-03 Overview: Un vania Papanicola Papanicola 2-20 Formattin ity of ou smear ou smear 00:00: g of this [place] as negative negative 00 note Medica l within within might be Branch last 12 last 12 different months months from the original. Nil pap 12-18-18 see scanned records History of History of Disease Active 2018-03 Overview : Univers herpes herpes 2-09 Formattin ity of genitalis genitalis 00:00: [place] 00 note Medical might be Branch different from the original. suppressi on at 36 weeks History of History of Disease Active U nivers depression depression 2-24 it y of 00:00: [place] 00 [facility] Contracept Contracept Disease Active Overview : Univers loli loli 9- Formattin ity of management management 00:00: g of this [place] 00 note Medical might be Branch different from the original. Nexplanon insertion 2014, removal 2016IUD insertion 2017, removal 2018 Allergies, Adverse Reactions, Alerts Allergy Allergy Status Severity Reaction(s) Onset Inactive Treating Comm ents Source Name Type Date Date Clinician NO KNOWN Drug Active Univers ALLERGIE Class ity of S [facility] Social History Social Habit Start Date Stop Date Quantity Comments Source History of tobacco 2010-04-29 Cigarette Smoker University of use 00:00:[address] [facility] Exposure to Not sure [place] of SARS-CoV-2 (event) [facility] Alcohol intake 2019-10-11 2019-10-11 .29 /d University of 00:00:00 00:00:[address] [facility] Cigarettes smoked 2019-09-20 2019-09-20 Univers ity of current (pack per 00:00:00 00:00:00 [facility] ) - Reported Branch Cigarette 2019-09-20 2019-09-20 University of pack-years 00:00:00 00:00:[address] [facility] Tobacco use and 2019-09-20 2019-09-20 Never used Universit y of exposure 00:00:00 00:00:[address] [facility] History [facility] 2019-09-20 2019-09-20 3 University o f Alcohol Frequency 00:00:00 00:00:00 [facility] Branch History SDSC 2019-09-20 2019-09-20 1 University o f Alcohol Std Drinks 00:00:00 00:00:[address] [facility] History SDSC 2019-09-20 2019-09-20 1 University o f Alcohol Binge 00:00:00 00:00:00 [place] [facility] Alcohol Comment 2019-09-20 2019-09-20 scial Universit y of 00:00:00 00:00:00 [place] [facility] [place] Tobacco Comment 2019-09-20 2019-09-20 per pt smokes 1 [facility] ersity of 00:00:00 00:00:00 cigarette a day [place] [facility] ical Branch Sex Assigned At [birth year] Universit y of 00:00:00 00:00:[address] [facility] Smoking Status Start Date Stop Date Source Current some day smoker 2019-09-20 00:00:00 [facility] of [facility] Medications Ordered Filled Start Stop Current Ordering Indication Dosage Frequency Signature Comments Components Source Medication Medication Date Date Medication? Clinician (SIG) Name Name ibuprofen 2020-03 Yes [id number] 600mg Take 1 U nivers 600 mg 1-15 tablet by ity of tablet 00:00: mouth [place] 00 every 6 Medical (six) Branch hours as needed for Pain (scale 4-6). clindamycin 2020-03- Yes [id number] 300mg Take 1 Univers 300 mg 1-15 11-26 capsule by ity of capsule 00:00: 05:59 mouth 4 [place] 00 :00 (four) Medical times Branch daily for 10 days. metroNIDAZO Yes [id number] 500mg Take 1 Univers LE 500 mg 7-17 tablet by ity o f tablet 00:00: mouth 2 [place] 00 (two) Medical times Branch daily. norgestimat Yes [id number] 1{tbl} Take 1 Univers e-ethinyl 4-16 tablet by ity o f estradiol 00:00: mouth [place] (ORTHO 00 daily. Medical TRI-CYCLEN Branch LO, 28,) 0.18/0.215/ 0.25 mg-25 mcg tablet 2019-0 Yes [id number] 1{tbl} Take 1 Univers vitamin 3-07 tablet by ity of w/FA tablet 00:00: mouth [place] 00 daily. Medical Branch docusate 2019- Yes [id number] 240mg Take 1 U nivers calcium 240 3-07 capsule by it y of mg capsule 00:00: mouth [place] 00 daily as Medical needed for Branch Constipati on. ferrous Yes [id number] 325mg Take 1 Un vania sulfate 325 05-10 tablet by ity of mg (65 mg 00:00: mouth 2 [place] iron) 00 (two) Medical tablet times Branch daily. ibuprofen [id number] 600mg Take 1 Univers 600 mg 301-18 tablet by ity of tablet 00:00: 00:00 mouth [place] 00 :00 every 6 Medical (six) Branch hours as needed (Pain). Take with food or milk. Immunizations Ordered Filled Immunization Date Status Comments Sour e Immunization Name Name HPV9 2019-05-11 Completed University of 00:00:[address] [facility] TDAP (ADACEL) 2019-02-25 Completed University of VACCINE 00:00:[address] [facility] Influenza Virus 2019-01-18 Completed Universit y of Vaccine Quad .5 mL 00:00:00 [facility] 6+ MO Branch HPV 2012-05-02 Completed University of 00:00:[address] [facility] Influenza Virus 2011-04-10 Completed Universit y of Vaccine 00:00:[address] [facility] Tetanus/Diptheria 2009-03-06 Completed Univers ity of 00:00:[address] [facility] Vital Signs Vital Name Observation Time Observation Value Comments Source Systolic blood 2021-01-18 23:13:00 145 mm[Hg] Univer sity of pressure [facility] Diastolic blood 2021-01-18 23:13:00 86 mm[Hg] Unive rsity of [facility] Heart rate 2021-01-18 23:13:00 74 /min [facility] Body temperature 2021-01-18 23:13:00 36.78 [facility] Respiratory rate 2021-01-18 23:13:00 18 /min [facility] Body weight 2021-01-18 23:13:00 85.276 kg [facility] BMI 2021-01-18 23:13:00 30.34 kg/m2 [facility] Oxygen saturation in 2021-01-18 23:13:00 99 /min [facility] Arterial blood by [facility] Pulse oximetry Branch Procedures Procedure Date / Time Performed Performing Clinician Sour e NOTICE OF PRIVACY 2021-01-18 23:10:27 Doctor Unassigned, No Univ [facility] PRACTICES Name Medical Branch CONSENT/REFUSAL FOR 2021-01-18 23:10:09 Doctor Unassigned, No Un [facility] DIAGNOSIS AND Name Medical Branch TREATMENT Encounters Start End Encounter Admission Attending Care Care Encounter Source Date/Time Date/Time Type Type Clinicians Facility Department ID 2020-12-31 Outpatient [facility] [id number] Univers 12:51:42 ity [facility] 2021-01-18 2021-01-18 Emergency X Nancy BARKER [facility] ERT [id number] Univers 17:15:00 18:06:00 ity [facility] 2021-01-18 2021-01-18 Emergency Nancy Barker [facility] [id number] Univers 17:15:00 18:06:00 Larry ESTRADA [id number] i [facility] [id number] [facility] [id number] [place] [address] Branch 2020-01-03 2020-01-03 Outpatient R AKINSIPE, [facility] [id number] Univers 13:15:00 13:15:00 KENDRA ity o [facility] 2020-01-03 2020-01-03 Outpatient R AKINSIPE, [facility] [id number] Univers 13:15:00 13:15:00 KENDRA ity o [facility] 2019-11-22 2019-11-22 Outpatient R AKINSIPE, [facility] [id number] Univers 13:00:00 13:00:00 KENDRA [id number] ity o f [facility] 2019-11-22 2019-11-22 Outpatient R AKINSIPE, [facility] [id number] Univers 13:00:00 13:00:00 KENDRA ity o [facility] 2019-10-14 2019-10-14 Outpatient R AKINSIPE, [facility] [id number] Univers 15:00:00 15:00:00 KENDRA jarody o [facility] 2019-10-14 2019-10-14 Outpatient R AKINSIPE, [facility] [id number] Univers 15:00:00 15:00:00 KENDRA ity o [facility] 2019-10-11 2019-10-11 Office Akinsipe, [facility] [id number] 15:20:21 16:42:46 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 2019-10-11 2019-10-11 Outpatient R AKINSIPE, [facility] [id number] Univers 15:45:00 15:45:00 KENDRA oliveray o [facility] 2019-10-11 2019-10-11 Orders Doctor EMILY [id number] 00:00:00 00:00:00 Only Unassigned, SATINDER [id number] [place] [id number] 2019-09-27 2019-09-27 Outpatient R AKINSIPE, [facility] [id number] Univers 14:30:00 14:30:00 KENDRA [id number] jarody o [facility] 2019-09-27 2019-09-27 Outpatient R AKINSIPE, [facility] [id number] Univers 14:30:00 14:30:00 KENDRA oliveray o [facility] 2019-09-20 2019-09-20 Outpatient R AKINSIPE, [facility] [id number] Univers 13:15:00 13:15:00 KENDRA [id number] ity o [facility] 2019-09-20 2019-09-20 Outpatient R AKINSIPE, [facility] [id number] Univers 13:15:00 13:15:00 KENDRA ity o [facility] 2019-06-20 2019-06-20 Outpatient R AKINSIPE, [facility] [id number] Univers 13:15:00 13:15:00 KENDRA [id number] jarody o [facility] 2019-06-20 2019-06-20 Outpatient R AKINSIPE, [facility] [id number] Univers 13:15:00 13:15:00 KENDRA itmaria ines o [facility] 2019-05-30 2019-05-30 Outpatient R JEANNETTE, [facility] [id number] Univers 10:15:00 10:15:00 KALIEELIANA barajas [facility] 2019-05-10 2019-05-10 Outpatient R AKINSIPE, [facility] [id number] Univers 14:00:00 14:00:00 KENDRA itmaria ines o [facility] 2019-05-10 2019-05-10 Outpatient R AKINSIPE, [facility] [id number] Univers 14:00:00 14:00:00 KENDRA jenn o [facility] 2019-05-09 2019-05-09 Outpatient R AKINSIPE, [facility] [id number] Univers 13:15:00 13:15:00 KENDRA itmaria ines o f [facility] 2019-05-09 2019-05-09 Outpatient R AKINSIPE, [facility] [id number] Univers 13:15:00 13:15:00 KENDRA itmaria ines o f [facility] 2019-05-03 2019-05-03 Outpatient R AKINSIPE, [facility] [id number] Univers 10:00:00 10:00:00 KENDRA [id number] ity o [facility] 2019-05-03 2019-05-03 Outpatient R AKINSIPE, [facility] [id number] Univers 10:00:00 10:00:00 KENDRA itmaria ines o [facility] 2019-05-02 2019-05-02 Outpatient R AKINSIPE, [facility] [id number] Univers 13:15:00 13:15:00 KENDRA itmaria ines o [facility] Results This patient has no known results.
[2021-01-23] MEDS ORDERED: FAMOTIDINE 20 MG/2 ML VIAL IV ONE ×2 (10:07→22:45)
[2021-01-23] MEDS ORDERED: NA CHLORIDE 0.9% 1,000 ML ONE ×3 (10:07→16:22)
[2021-01-23] MEDS ORDERED: DIPHENHYDRAMINE 50 MG/ML VIAL ONE (10:07)
[2021-01-23] MEDS ORDERED: METOCLOPRAMIDE 10 MG/2mL INJ ONE (10:07)
[2021-01-23 10:20] LABS: Absolute Lymphocytes (CBC) 0.7 K/uL (0.7-4.9); Basophils % 0.3 % (0-1.3); Lymphocytes % 6.8 % (15.3-44.8); MPV 7.2 fL (7.6-11.3); RBC Red Blood Cell Count 4.89 M/uL (3.86-4.86)
[2021-01-23 10:41] LABS: Albumin 4.6 g/dL (3.4-5.0); Bilirubin Direct 0.1 mg/dL (0-0.2); Bilirubin Total 0.5 mg/dL (0.2-1.0); Potassium 4.2 mmol/L (3.5-5.1); Protein, Total 9.6 g/dL (6.4-8.2)
[2021-01-23 11:01] LABS: Arterial Blood Carboxyhemoglob 1.1 % (0-1.5); Blood Gas Oxyhemoglobin 95.4 % (94-97); Blood O2 Saturation 97.4 % (92-98.5)
[2021-01-23 11:15] LABS: Urine Blood Trace-lysed (Negative); Urine Glucose Negative (Negative); Urine Protein 1+ (Negative); Urine Specific Gravity >=1.030 (1.005-1.030)
[2021-01-23] MEDS ORDERED: FENTANYL CITR 100 MCG/2 ML ONE ×2 (11:22→13:37)
[2021-01-23] MEDS ORDERED: ONDANSETRON 4 MG/2 ML VIAL ONE (11:23)
--- NOTE | 2021-01-23 12:16 | RAD REPORT ---
EXAM DESCRIPTION: US - Abdomen Exam Limited - 01/23/2021 11:54 am CLINICAL HISTORY: ABD PAIN COMPARISON: ABDOMINAL EXAM COMPLETE dated 06/15/2011 FINDINGS: The gallbladder demonstrates no gallstones. No pericholecystic fluid or gallbladder wall t hickening. The common bile duct is normal measuring 2 mm. The liver demonstrates no findings of intrahepatic biliary dilatation. IMPRESSION: Unremarkable examination.
--- NOTE | 2021-01-23 12:17 | RAD REPORT ---
EXAM DESCRIPTION: CTAbdomen Pelvis W Contrast - 01/23/2021 12:00 pm CLINICAL HISTORY: Abdominal pain. abdominal pain, vomiting COMPARISON: No comparisons TECHNIQUE: Biphasic CT imaging of the abdomen and pelvis was performed with 100 ml non-ionic IV cont rast. All CT scans are performed using dose optimization technique as appropriate and may include automated exposure control or mA/KV adjustment according to patient size. FINDINGS: The lung bases are clear. The liver demonstrates mild fatty infiltration. Spleen, pancreas, adrenal glands and kidneys are with in normal limits. No bowel obstruction, free air, free fluid or abscess. The appendix is normal. No evidence of signi ficant lymphadenopathy. No suspicious bony findings. IUD is in the uterus. IMPRESSION: No acute intra-abdominal or pelvic finding.
[2021-01-23] MEDS ORDERED: LORazepam 2 MG/ML VIAL ONE (12:31)
[2021-01-23] MEDS ORDERED: PROMETHAZINE INJ 25 MG/ML AMP ONE ×2 (12:31→18:33)
[2021-01-23 12:38] LABS: Blood Morphology Comment NOT SEEN (NOT SEEN); Platelet Estimate INCR; White Blood Cell Scan OK (OK)
[2021-01-23] MEDS ORDERED: KETOROLAC 30 MG/ML INJ ONE (13:37)
[2021-01-23 14:21] LABS: Potassium 4.2 mmol/L (3.5-5.1)
[2021-01-23 14:52] LABS: Urine Specific Gravity/Preg >1.030 (1.005-1.030)
--- NOTE | 2021-01-23 15:31 | ER ---
Nurse's Notes [facility] Name: Mary Stokes Age: 35 yrs Sex: Female : 1985 Arrival Date: 01/23/2021 Time: 10:02 Bed 6 Private MD: Diagnosis: Metabolic Acidosis;Dehydration;Intractable Vomiting Presentation: 01/23 10:02 Chief complaint: EMS states: nausea/vomiting/diarrhea that began last night around 9 aa5 PM. Pt also reports back pain and abdominal cramping. Pt has been taking hydrocodone post wisdom tooth removal last week. Pt was given Zofran 4 mg IM by EMS [employer]. Coronavirus screen: diarrhea, nausea, vomiting. Ebola Screen: No symptoms or risks identified at this time. Initial Sepsis Screen: Does the patient meet any 2 criteria? HR > 90 bpm. Does the patient have a suspected source of infection? No. Patient's initial sepsis screen is negative. Risk Assessment: Do you want to hurt yourself or someone else? Patient reports no desire to harm self or others. Onset of symptoms was January 22, 2021. 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 - Social history:: Smoking status: Reported history of juuling and/or vaping. Screenin:08 Abuse screen: Denies threats or abuse. Nutritional screening: No deficits noted. aa5 Tuberculosis screening: No symptoms or risk factors identified. Fall Risk None identified. Assessment: 10:07 General: Appears uncomfortable, Behavior is calm, cooperative. Pain: Complains of pain aa5 in abdomen and back Quality of pain is described as aching, crampy, Pain began 1 day ago. Is continuous. Neuro: Level of Consciousness is awake, alert, obeys commands, Oriented to person, place, time, situation. Cardiovascular: Heart tones S1 S2 present Rhythm is regular. Respiratory: Airway is patent Respiratory effort is even, unlabored, Respiratory pattern is regular, symmetrical. GI: Abdomen is round non-distended, Bowel sounds present X 4 quads. Abd is soft and non tender X 4 quads. Reports diarrhea, nausea, vomiting. : No signs and/or symptoms were reported regarding the genitourinary system. EENT: Reports recent wisdom tooth extraction. . Derm: Skin is pink, warm \T\ dry. Musculoskeletal: Range of motion: intact in all extremities. 11:06 Reassessment: Patient is alert, oriented x 3, equal unlabored respirations, skin aa5 warm/dry/pink. Pt assisted to restroom via wheelchair. Pt c/o nausea and back pain at this time, PA was notified. . 11:30 Reassessment: Patient and/or family updated on plan of care and expected duration. Pain as6 level reassessed. Patient is alert, oriented x 3, equal unlabored respirations, skin warm/dry/pink. 11:47 Reassessment: US completed, pt now to CT via wheelchair. . aa5 13:06 Reassessment: Pt resting in bed with eyes closed, pt easy to awaken to verbal stimuli. aa5 Pt states feeling better, pt requesting another dose of medication for pain and reports nausea has improved. PA was notified. . 13:36 Reassessment: Pt c/o increased back pain, MD was notified. . aa5 13:42 Reassessment: Patient is alert, oriented x 3, equal unlabored respirations, skin aa5 warm/dry/pink. Repeat Chem 7 drawn and sent to lab . 14:30 Reassessment: Pt resting in bed with eyes closed, respirations even and unlabored, skin aa5 is pink/warm/dry. . 15:59 Reassessment: Dr. Nazario (Hospitalist) at bedside . aa5 16:29 Reassessment: Patient is alert, oriented x 3, equal unlabored respirations, skin aa5 warm/dry/pink. Patient states symptoms have improved. 17:15 Reassessment: Pt resting in bed with eyes closed, respirations even and unlabored, skin aa5 is pink/warm/dry. . 18:00 Reassessment: Pt resting in bed with eyes closed, respirations even and unlabored, skin aa5 is pink/warm/dry. . 18:28 Reassessment: Patient is alert, oriented x 3, equal unlabored respirations, skin aa5 warm/dry/pink. Pt c/o increased back pain and c/o nausea. . 19:20 Reassessment: Unsuccessful attempt to call report to admitting nurse. . aa5 Vital Signs: 10:02 BP 124 / 82; Pulse 120; Resp 18 S; Temp 98.8(O); Pulse Ox 97% on R/A; Weight 86.18 kg aa5 (R); Height 5 ft. 7 in. (170.18 cm) (R); 11:30 BP 132 / 80; Pulse 106; Resp 16 S; Pulse Ox 99% on R/A; as6 13:06 BP 119 / 48; Pulse 107; Resp 16 S; Temp 99.3(O); Pulse Ox 100% on R/A; aa5 16:11 BP 109 / 51; Pulse 120; Resp 18 S; Temp 99.6(O); Pulse Ox 98% on R/A; aa5 18:00 BP 106 / 48; Pulse 119; Resp 18 S; Temp 99.1(O); Pulse Ox 97% on R/A; aa5 10:02 Body Mass Index 29.76 (86.18 kg, 170.18 cm) aa5 16:11 PA notified of increased HR and increased temperature. aa5 ED Course: 10:02 Patient arrived in ED. aa5 10:02 Arm band placed on. aa5 10:02 Patient has correct armband on for positive identification. Bed in low position. Call aa5 light in reach. Side rails up X 1. Pulse ox on. NIBP on. 10:03 Kadeem Coleman PA is PHCP. jm 10:03 Hugo Ferreira MD is Attending Physician. jmm 10:03 Jona Magana, REBEKAH is Primary Nurse. as6 10:04 Triage completed. aa5 10:07 Initial lab(s) drawn, by me, sent to lab. Inserted saline lock: 22 gauge in right dh3 wrist, using aseptic technique. Blood collected. 11:53 US Abdomen Limited In Process Unspecified. EDMS 11:59 CT Abd/Pelvis - IV Contrast Only In Process Unspecified. EDMS 15:29 Emilio Nazario is Hospitalizing Provider. jmm 20:27 No provider procedures requiring assistance completed. Patient admitted, IV remains in em place. Administered Medications: 10:18 Drug: Reglan (metoCLOPramide) 20 mg Route: IVP; Site: right wrist; as6 11:07 Follow up: Response: No adverse reaction as6 10:18 Drug: Pepcid (famotidine) 20 mg Route: IVP; Site: right wrist; as6 11:07 Follow up: Response: No adverse reaction as6 10:18 Drug: diphenhydrAMINE 12.5 mg Route: IVP; Site: right wrist; as6 11:07 Follow up: Response: No adverse reaction as6 10:19 Drug: NS 0.9% 1000 ml Route: IV; Rate: 1 bolus; Site: right wrist; as6 11:07 Follow up: Response: No adverse reaction; IV Status: Completed infusion; IV Intake: as6 1000ml 11:29 Drug: fentaNYL (PF) 25 mcg Route: IVP; Site: right wrist; as6 11:51 Follow up: Response: No adverse reaction aa5 11:29 Drug: Zofran (Ondansetron) 4 mg Route: IVP; Site: right wrist; as6 11:51 Follow up: Response: No adverse reaction aa5 12:39 Drug: NS 0.9% 1000 ml Route: IV; Rate: 1 bolus; Site: right wrist; as6 13:40 Follow up: IV Status: Completed infusion; IV Intake: 1000ml aa5 12:39 Drug: Promethazine 12.5 mg Route: IVP; Site: right wrist; as6 12:55 Follow up: Response: No adverse reaction aa5 12:39 Drug: Ativan (LORazepam) 1 mg Route: IVP; Site: right wrist; as6 12:55 Follow up: Response: No adverse reaction aa5 13:46 Drug: Ketorolac 30 mg Route: IVP; Site: right forearm; aa5 13:50 Follow up: Response: No adverse reaction aa5 13:46 Drug: fentaNYL (PF) 25 mcg Route: IVP; Site: right forearm; aa5 13:50 Follow up: Response: No adverse reaction aa5 16:29 Drug: Rocephin (cefTRIAXone) 1 grams Route: IV; Rate: calculated rate; Site: right aa5 forearm; 16:40 Follow up: Response: No adverse reaction aa5 16:29 Drug: Tylenol 650 mg Route: PO; aa5 17:00 Follow up: Response: No adverse reaction aa5 16:29 Drug: NS 0.9% 1000 ml Route: IV; Rate: 1 bolus; Site: right forearm; aa5 17:30 Follow up: IV Status: Completed infusion; IV Intake: 1000ml aa5 18:35 Drug: morphine 2 mg Route: IVP; Site: right forearm; aa5 18:41 Follow up: Response: No adverse reaction aa5 18:35 Drug: Phenergan (promethazine) 12.5 mg Route: IVP; Site: right forearm; aa5 18:41 Follow up: Response: No adverse reaction aa5 Intake: 11:07 IV: 1000ml; Total: 1000ml. as6 13:40 IV: 1000ml; Total: 2000ml. aa5 17:30 IV: 1000ml; Total: 3000ml. aa5 Outcome: 15:30 Decision to Hospitalize by Provider. maximiliano 20:27 Admitted to Med/surg accompanied by tech, via wheelchair, room 212, Report called to hanna lechuga rn 20:27 Condition: stable 20:27 Instructed on the need for admit, Demonstrated understanding of instructions. 20:44 Patient left the ED. em Signatures: Dispatcher [employer] EDKadeem Vera PA PA jmm Munoz, Edgar, RN Ruth Tafoya, RN RN [facility] Jossy [facility] Jona Magana, REBEKAH RN as6 Corrections: (The following items were deleted from the chart) 10:06 10:02 Chief complaint: EMS states: nausea/vomiting/diarrhea that began last night aa5 around 9 PM. Pt also reports back pain and abdominal cramping. Pt has been taking hydrocodone post wisdom tooth removal last week. aa5 16:15 16:11 Pulse 120bpm; Resp 18bpm; Spontaneous; Pulse Ox 98% RA; aa5 aa5 16:29 16:11 BP 109 / 51; Pulse 120bpm; Resp 18bpm; Spontaneous; Pulse Ox 98% RA; Temp 99.6F aa5 Oral; aa5 18:40 10:00 NS 0.9% 1000 ml IV at 1 bolus in right forearm aa5 aa5
--- NOTE | 2021-01-23 15:31 | EDPHYS ---
Physician Documentation [facility] Name: Mary Stokes Age: 35 yrs Sex: Female : 1985 Arrival Date: 01/23/2021 Time: 10:02 Bed 6 Private MD: ED Physician Hugo Ferreira HPI: 01/23 10:28 This 35 yrs old Female presents to ER via EMS with complaints of jmm Nausea/Vomiting/Diarrhea. 10:28 The patient presents to the emergency department with nausea, vomiting, diarrhea. jmm Possible causes: unknown. The symptoms are aggravated by nothing. The symptoms are alleviated by nothing. Associated signs and symptoms: Pertinent positives: abdominal pain. The patient has not experienced similar symptoms in the past. 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 - Social history:: Smoking status: Reported history of juuling and/or vaping. ROS: 10:28 Constitutional: Negative for fever, chills, and weight loss, Cardiovascular: Negative jmm for chest pain, palpitations, and edema, Respiratory: Negative for shortness of breath, cough, wheezing, and pleuritic chest pain. 10:28 Abdomen/GI: Positive for nausea and vomiting, diarrhea. 10:28 All other systems are negative. Exam: 10:28 Constitutional: This is a well developed, well nourished patient who is awake, alert, jmm and in no acute distress. Head/Face: atraumatic. Eyes: EOMI, no conjunctival erythema appreciated ENT: Moist Mucus Membranes Neck: Trachea midline, Supple Chest/axilla: Normal chest wall appearance and motion. Cardiovascular: Regular rate and rhythm. No edema appreciated Respiratory: Normal respirations, no respiratory distress appreciated 10:28 Back: Normal ROM Skin: General appearance color normal MS/ Extremity: Moves all extremities, no obvious deformities appreciated, no edema noted to the lower extremities Neuro: Awake and alert, normal gait Psych: Behavior is normal, Mood is normal, Patient is cooperative and pleasant 10:28 Abdomen/GI: Inspection: abdomen appears normal, Bowel sounds: normal, Palpation: soft, mild abdominal tenderness, in all quadrants. Vital Signs: 10:02 BP 124 / 82; Pulse 120; Resp 18 S; Temp 98.8(O); Pulse Ox 97% on R/A; Weight 86.18 kg aa5 (R); Height 5 ft. 7 in. (170.18 cm) (R); 11:30 BP 132 / 80; Pulse 106; Resp 16 S; Pulse Ox 99% on R/A; as6 13:06 BP 119 / 48; Pulse 107; Resp 16 S; Temp 99.3(O); Pulse Ox 100% on R/A; aa5 16:11 BP 109 / 51; Pulse 120; Resp 18 S; Temp 99.6(O); Pulse Ox 98% on R/A; aa5 18:00 BP 106 / 48; Pulse 119; Resp 18 S; Temp 99.1(O); Pulse Ox 97% on R/A; aa5 10:02 Body Mass Index 29.76 (86.18 kg, 170.18 cm) aa5 16:11 PA notified of increased HR and increased temperature. aa5 MDM: 10:03 Patient medically screened. [facility] 15:28 Data reviewed: vital signs, nurses notes. Counseling: I had a detailed discussion with [facility] the patient and/or guardian regarding: the historical points, exam findings, and any diagnostic results supporting the discharge/admit diagnosis, lab results, radiology results, the need for further work-up and treatment in the hospital. 01/23 10:04 Order name: Basic Metabolic Panel [facility] 01/23 10:04 Order name: CBC with Diff; Complete Time: 12:39 [facility] 01/23 10:04 Order name: Hepatic Function; Complete Time: 10:47 [facility] 01/23 10:04 Order name: Lipase; Complete Time: 10:47 [facility] 01/23 10:05 Order name: Basic Metabolic Panel; Complete Time: 10:47 [facility] 01/23 10:44 Order name: ABG; Complete Time: 11:11 [facility] 01/23 10:47 Order name: US Abdomen Limited; Complete Time: 12:18 [facility] 01/23 11:04 Order name: Lactate; Complete Time: 11:46 [facility] 01/23 11:15 Order name: Urine Dipstick-Ancillary; Complete Time: 11:17 [facility] 01/23 11:16 Order name: Urine --Ancillary (enter results); Complete Time: 14:54 01/23 12:38 Order name: CBC Smear Scan; Complete Time: 12:39 [facility] 01/23 13:15 Order name: BMP: repeat after 2nd bolus; Complete Time: 14:25 [facility] 01/23 15:03 Order name: SARS-COV-2 RT PCR (Document "Date of Onset" if Symptomatic) [facility] 01/23 15:04 Order name: SARS-COV-2 RT PCR; Complete Time: 17:04 [facility] 01/23 11:06 Order name: CT Abd/Pelvis - IV Contrast Only; Complete Time: 12:18 [facility] 01/23 10:04 Order name: IV Saline Lock; Complete Time: 10:06 [facility] 01/23 10:04 Order name: Labs collected and sent; Complete Time: 10:06 [facility] 01/23 10:04 Order name: Urine Dipstick-Ancillary (obtain specimen); Complete Time: 11:16 [facility] 01/23 10:04 Order name: Urine Test (obtain specimen); Complete Time: 11:16 [facility] Administered Medications: 10:18 Drug: Reglan (metoCLOPramide) 20 mg Route: IVP; Site: right wrist; as6 11:07 Follow up: Response: No adverse reaction as6 10:18 Drug: Pepcid (famotidine) 20 mg Route: IVP; Site: right wrist; as6 11:07 Follow up: Response: No adverse reaction as6 10:18 Drug: diphenhydrAMINE 12.5 mg Route: IVP; Site: right wrist; as6 11:07 Follow up: Response: No adverse reaction as6 10:19 Drug: NS 0.9% 1000 ml Route: IV; Rate: 1 bolus; Site: right wrist; as6 11:07 Follow up: Response: No adverse reaction; IV Status: Completed infusion; IV Intake: as6 1000ml 11:29 Drug: fentaNYL (PF) 25 mcg Route: IVP; Site: right wrist; as6 11:51 Follow up: Response: No adverse reaction aa5 11:29 Drug: Zofran (Ondansetron) 4 mg Route: IVP; Site: right wrist; as6 11:51 Follow up: Response: No adverse reaction aa5 12:39 Drug: NS 0.9% 1000 ml Route: IV; Rate: 1 bolus; Site: right wrist; as6 13:40 Follow up: IV Status: Completed infusion; IV Intake: 1000ml aa5 12:39 Drug: Promethazine 12.5 mg Route: IVP; Site: right wrist; as6 12:55 Follow up: Response: No adverse reaction aa5 12:39 Drug: Ativan (LORazepam) 1 mg Route: IVP; Site: right wrist; as6 12:55 Follow up: Response: No adverse reaction aa5 13:46 Drug: Ketorolac 30 mg Route: IVP; Site: right forearm; aa5 13:50 Follow up: Response: No adverse reaction aa5 13:46 Drug: fentaNYL (PF) 25 mcg Route: IVP; Site: right forearm; aa5 13:50 Follow up: Response: No adverse reaction aa5 16:29 Drug: Rocephin (cefTRIAXone) 1 grams Route: IV; Rate: calculated rate; Site: right aa5 forearm; 16:40 Follow up: Response: No adverse reaction aa5 16:29 Drug: Tylenol 650 mg Route: PO; aa5 17:00 Follow up: Response: No adverse reaction aa5 16:29 Drug: NS 0.9% 1000 ml Route: IV; Rate: 1 bolus; Site: right forearm; aa5 17:30 Follow up: IV Status: Completed infusion; IV Intake: 1000ml aa5 18:35 Drug: morphine 2 mg Route: IVP; Site: right forearm; aa5 18:41 Follow up: Response: No adverse reaction aa5 18:35 Drug: Phenergan (promethazine) 12.5 mg Route: IVP; Site: right forearm; aa5 18:41 Follow up: Response: No adverse reaction aa5 Disposition: 01/24 07:54 Co-signature as Attending Physician, Hugo Ferreira MD I agree with the assessment and rn plan of care. Attestation: The patient's history, exam findings, diagnostics, and a summary of any interventions or procedures was reviewed in detail with Hugo Ferreira MD. Disposition Summary: 01/23/21 15:30 Hospitalization Ordered Hospitalization Status: Observation jmm Provider: Emilio Nazario Location: Telemetry/MedSurg (observation) jmm Condition: Stable jmm Problem: new jmm Symptoms: are unchanged jmm Bed/Room Type: Standard [facility] Room Assignment: 212(01/23/21 18:33) dw Diagnosis - Metabolic Acidosis jmm - Dehydration jmm - Intractable Vomiting [facility] Forms: - Medication Reconciliation Form jmm - SBAR form [facility] Signatures: Dispatcher [employer] Maria Alejandra Davis RN RN dw Kadeem Coleman PA PA [facility] Hugo Ferreira MD MD rn Calderon, Audri, RN RN aa5 Jona Magana RN RN as6 Corrections: (The following items were deleted from the chart) 01/23 18:33 15:30 jmm dw
[2021-01-23] MEDS ORDERED: ACETAMINOPHEN 325 MG TABLET ONE (16:22)
[2021-01-23] MEDS ORDERED: CEFTRIAXONE 1000 MG/VIAL ONE (16:22)
--- NOTE | 2021-01-23 17:35 | P.HP ---
Certification for Inpatient Patient admitted to: Observation With expected LOS: <2 Midnights Practitioner: I am a practitioner with admitting privileges, knowledge of patient current condition, hospital course, and medical plan of care. Services: Services provided to patient in accordance with Admission requirements found in Title 42 Section 412.3 of the Code of Federal Regulations Patient History Date of Service: 01/23/21 Reason for admission: Nausea and vomiting History of Present Illness: 35-year-old woman with a past medical history of alcohol abuse presented to the emergency department with complaint of nausea and vomiting and diarrhea which has been present for about 3 days. Patient states she has been vomiting everything she eats or drinks. Symptoms also associated with diarrhea. She states that she had about 12 episodes of vomiting and diarrhea last night. Also complaining of abdominal pain. Blood work in the emergency department shows metabolic acidosis. Liver enzymes are moderately elevated. CBC shows hemoconcentration. Patient is hospitalized for further management. Allergies No Known Drug Allergies Allergy (Verified 07/29/14 23:04) Unknown No Known Allergies Allergy (Uncoded 11/05/15 03:06) Unknown Home Medications: Cyclobenzaprine [Flexeril*] 10 mg PO BID PRN #20 tab 08/04/14 Hydrocodone 7.5/APAP 325 [[place] 7.5/325 mg*] 1 tab PO Q4H PRN #20 tab 08/04/14 Valacyclovir HCl [Valtrex] 1,000 mg PO TID #21 tablet 08/04/14 methylPREDNISolone [Medrol*] 4 mg PO DAILY #1 tab 08/04/14 - Past Medical/Surgical History Diabetic: No -: Drug Abuse -: ETOH -: BACK PAIN -: MIGRAINES - Family History Mother -: Hypertension - Social History Alcohol use: Yes CD- Drugs: No Caffeine use: No Place of Residence: Home Review of Systems Other: Patient reports low-grade fever. She denies any cough or shortness of breath. Except as documented, all other systems reviewed and negative. Physical Examination - Physical Exam General: Alert, In no apparent distress, Oriented x3 HEENT: Atraumatic, PERRLA, Mucous membr. moist/pink, EOMI, Sclerae nonicteric Neck: Supple, JVD not distended Respiratory: Clear to auscultation bilaterally, Normal air movement Cardiovascular: No edema, Normal S1 S2, No murmurs, Other (Tachycardia) Gastrointestinal: Normal bowel sounds, Soft and benign, Non-distended, No tenderness Musculoskeletal: No swelling, No tenderness Integumentary: No rashes, No erythema Neurological: Normal speech, Normal strength at 5/5 x4 extr - Studies Laboratory Data (last 24 hrs) 01/23/21 13:40: Sodium 141, Potassium 4.2, BUN 13, Creatinine 0.75, Glucose 112 H 01/23/21 10:07: WBC 10.80, Hgb 15.7 H, Hct 47.0 H, Plt Count 444 H 01/23/21 10:07: Sodium 139, Potassium 4.2, BUN 15, Creatinine 1.12, Glucose 121 H, Total Bilirubin 0.5, AST 105 H, ALT 198 H, Alkaline Phosphatase 70, Lipase 116 Assessment and Plan - Problems (Diagnosis) (1) Acute gastroenteritis Current Visit: Yes Status: Acute (2) Metabolic acidosis Current Visit: Yes Status: Acute (3) Dehydration Current Visit: Yes Status: Acute (4) History of alcohol abuse Current Visit: Yes Status: Acute - Plan Place on observation on the medical floor Hydrate aggressively with IV fluid. Start IV Flagyl and ciprofloxacin for possible infectious gastroenteritis. Monitor BMP to follow metabolic acidosis. Supportive measures-pain medications and antiemetics as needed. Watch for alcohol withdrawal and initiate CIWA. - Advance Directives Does patient have a Living Will: No Does patient have a Durable POA for Healthcare: No
[2021-01-23] MEDS ORDERED: MORPHINE 2 MG/ML SYR ONE (18:34)
[2021-01-23] MEDS ORDERED: PROMETHAZINE 25 MG TABLET PO PRN (20:56)
[2021-01-23] MEDS ORDERED: ACETAMINOPHEN 500 MG TAB PO PRN (20:56)
[2021-01-23] MEDS ORDERED: MAGNESIUM HYDROXIDE 8% 30 ML PO PRN (20:56)
[2021-01-23] MEDS: NA CHLORIDE 0.9% 1,000 ML IV SCH (21:46)
[2021-01-23] MEDS: MORPHINE 2 MG/ML SYR IV PRN (21:46)
[2021-01-23] MEDS: PROMETHAZINE INJ 25 MG/ML AMP IV PRN (21:46)
[2021-01-23 22:42] VITALS: BMI 29.7
[2021-01-23] MEDS ORDERED: KETOROLAC 30 MG/ML INJ IV ONE (22:44)
[2021-01-24] MEDS: MORPHINE 2 MG/ML SYR IV PRN ×2 (04:53→10:51)
[2021-01-24] MEDS: NA CHLORIDE 0.9% 1,000 ML IV SCH ×3 (04:53→20:52)
[2021-01-24] MEDS: ONDANSETRON 4 MG/2 ML VIAL IV PRN ×3 (04:53→16:23)
[2021-01-24 06:04] LABS: Absolute Lymphocytes (CBC) 1.4 K/uL (0.7-4.9); Basophils % 0.9 % (0-1.3); Hematocrit 34.3 % (36.0-45.0); Lymphocytes % 22.5 % (15.3-44.8); MPV 6.8 fL (7.6-11.3); RBC Red Blood Cell Count 3.61 M/uL (3.86-4.86)
[2021-01-24 06:15] LABS: BUN Blood Urea Nitrogen 16 mg/dL (7-18); Bicarbonate 19 mmol/L (21-32); Glucose Level 96 mg/dL (74-106); Magnesium 2.5 mg/dL (1.8-2.4); Phosphorus 1.5 mg/dL (2.5-4.9); Potassium 3.7 mmol/L (3.5-5.1); Sodium Level 144 mmol/L (136-145); Thyroid Stimulating Hormone 0.187 uIU/mL (0.360-3.740)
[2021-01-24] MEDS: PROMETHAZINE INJ 25 MG/ML AMP IV PRN ×3 (08:44→21:44)
[2021-01-24] MEDS ORDERED: POTASSIUM CL SA 10 MEQ TAB PO ONE (09:00)
[2021-01-24] MEDS: POTASS/SODIUM PHOSPHATE 1 PKT POWD.PACK PO SCH ×3 (10:52→16:23)
[2021-01-24] MEDS: KETOROLAC 30 MG/ML INJ IV PRN ×2 (12:04→17:33)
[2021-01-24] MEDS ORDERED: CEPACOL LOZENGES PO PRN (12:42)
--- NOTE | 2021-01-24 15:50 | P.PN ---
Subjective Date of Service: 01/24/21 Chief Complaint: Nausea and vomiting Patient with uncontrolled abdominal pain. She is also complaining of sore throat. She also stated she vomited blood a few times at home prior to presentation. Physical Examination - Vital Signs Temperature: 98.4 F Blood Pressure: 134/63 Pulse: 70 Respirations: 15 Pulse Ox (%): 97 - Physical Exam General: Alert, Oriented x3, Mild distress (Due to pain) HEENT: Mucous membr. moist/pink Neck: Supple, JVD not distended Respiratory: Clear to auscultation bilaterally, Normal air movement Cardiovascular: No edema, Regular rate/rhythm, Normal S1 S2 Gastrointestinal: Normal bowel sounds, Soft and benign, Non-distended, No tenderness Musculoskeletal: No swelling Integumentary: No rashes Neurological: Normal strength at 5/5 x4 extr Assessment And Plan - Current Problems (Diagnosis) (1) Acute gastroenteritis Current Visit: Yes Status: Acute (2) Metabolic acidosis Current Visit: Yes Status: Acute (3) Dehydration Current Visit: Yes Status: Acute (4) History of alcohol abuse Current Visit: Yes Status: Acute (5) Yuliya-Yi syndrome Current Visit: Yes Status: Acute - Plan Continue IV hydration. IV Flagyl and ciprofloxacin for possible infectious gastroenteritis. Start IV Protonix. Patient complaining of uncontrolled pain. She has not tolerated clear liquid diet. Supportive measures-pain medications and antiemetics as needed. Sore throat likely related to intractable vomiting. Cepacol as needed Metabolic acidosis improving Monitor BMP to follow metabolic acidosis. Lipase level within normal limits. Patient CBC showed hemoconcentration. Drop in hemoglobin likely related to hemodilution from IV hydration. Continue to monitor CBC. Watch for alcohol withdrawal and initiate CIWA.
[2021-01-24] MEDS ORDERED: SODIUM CHLORIDE 0.9% 10ML INJ IV PRN (15:53)
[2021-01-24] MEDS: MORPHINE 4 MG/ML SYR IV PRN ×2 (16:21→20:40)
[2021-01-24] MEDS ORDERED: HYDROCODONE/APAP 7.5/325 MG TAB PO PRN (16:37)
[2021-01-24] MEDS: PANTOPRAZOLE 40 MG INJ IVP SCH ×2 (16:37→20:41)
[2021-01-24] MEDS: METRONIDAZOLE 500mg IVPB 500 MG/100 ML BAG IV SCH (17:15)
[2021-01-24] MEDS ORDERED: MELATONIN 5 MG TABLET PO PRN (18:54)
[2021-01-24] MEDS: CIPROFLOXACIN 400mg IV 400 MG/200 ML BAG IV SCH (20:39)
[2021-01-25] MEDS: METRONIDAZOLE 500mg IVPB 500 MG/100 ML BAG IV SCH ×2 (00:18→08:43)
[2021-01-25] MEDS: NA CHLORIDE 0.9% 1,000 ML IV SCH ×3 (00:18→12:22)
[2021-01-25] MEDS: KETOROLAC 30 MG/ML INJ IV PRN ×3 (00:18→16:38)
[2021-01-25] MEDS: ONDANSETRON 4 MG/2 ML VIAL IV PRN ×3 (00:18→14:52)
[2021-01-25] MEDS: MORPHINE 4 MG/ML SYR IV PRN ×3 (01:43→10:29)
[2021-01-25 06:14] LABS: BUN Blood Urea Nitrogen 13 mg/dL (7-18); Bicarbonate 23 mmol/L (21-32); Glucose Level 103 mg/dL (74-106); Phosphorus 2.1 mg/dL (2.5-4.9); Potassium 3.6 mmol/L (3.5-5.1); Sodium Level 145 mmol/L (136-145)
[2021-01-25] MEDS: CIPROFLOXACIN 400mg IV 400 MG/200 ML BAG IV SCH (08:43)
[2021-01-25] MEDS: PANTOPRAZOLE 40 MG INJ IVP SCH (08:44)
[2021-01-25] MEDS: POTASS/SODIUM PHOSPHATE 1 PKT POWD.PACK PO SCH ×3 (08:44→12:20)
[2021-01-25] MEDS ORDERED: POTASS/SODIUM PHOSPHATE 1 PKT POWD.PACK PO SCH (09:00)
[2021-01-25] MEDS ORDERED: POTASSIUM 25 MEQ EFFERV TAB PO ONE (09:00)
[2021-01-25] MEDS: PROMETHAZINE INJ 25 MG/ML AMP IV PRN ×2 (10:29→16:37)
[2021-01-25 11:42] VITALS: O2SAT 99
--- NOTE | 2021-01-25 15:43 | P.DS ---
Admission Date: 01/24/21 Discharge Date: 01/25/21 Disposition: ROUTINE DISCHARGE Discharge Condition: FAIR Reason for Admission: Nausea and vomiting - Problems (1) Acute gastroenteritis Current Visit: Yes Status: Acute (2) Metabolic acidosis Current Visit: Yes Status: Acute (3) Dehydration Current Visit: Yes Status: Acute (4) History of alcohol abuse Current Visit: Yes Status: Acute (5) Yuliya-Yi syndrome Current Visit: Yes Status: Acute Brief History of Present Illness: 35-year-old woman with a past medical history of alcohol abuse presented to the emergency department with complaint of nausea and vomiting and diarrhea which has been present for about 3 days. Patient states she has been vomiting everything she eats or drinks. Symptoms also associated with diarrhea. She states that she had about 12 episodes of vomiting and diarrhea last night. Also complaining of abdominal pain. Blood work in the emergency department shows metabolic acidosis. Liver enzymes are moderately elevated. CBC shows hemoconcentration. Patient hospitalized for further management. Hospital Course: With admitted to the medical floor and started on supportive measures including IV fluids, IV opioid as needed for pain. She was also treated with IV a ntibiotics and IV Protonix. She has some episodes of diarrhea. She tolerated liquid diet. Diet was advanced to soft which she tolerated today. She had metabolic acidosis which resolved. Her liver enzymes are mildly elevated. CT abdomen and pelvis shows fatty liver infiltrate. Patient has clinically improved and deemed stable for discharge. She is prescribed ciprofloxacin and Flagyl to continue treatment for acute infective gastroenteritis. Vital Signs/Physical Exam: Temp Pulse Resp BP Pulse Ox 99.6 F 59 16 110/55 L 98 01/25/21 11:58 01/25/21 11:58 01/25/21 14:52 01/25/21 11:58 01/25/21 14:52 General: Alert, In no apparent distress, Oriented x3 HEENT: Mucous membr. moist/pink Neck: JVD not distended Respiratory: Clear to auscultation bilaterally, Normal air movement Cardiovascular: No edema, Regular rate/rhythm, Normal S1 S2 Gastrointestinal: Normal bowel sounds, Soft and benign, Non-distended, No tenderness Musculoskeletal: No swelling Integumentary: No rashes Neurological: Normal strength at 5/5 x4 extr Laboratory Data at Discharge: WBC 6.10 K/uL (4.3-10.9) D 01/24/21 05:36 Hgb 11.7 g/dL (12.0-15.0) L D 01/24/21 05:36 Hct 34.3 % (36.0-45.0) L D 01/24/21 05:36 Plt Count 295 K/uL (152-406) D 01/24/21 05:36 Sodium 145 mmol/L (136-145) 01/25/21 05:23 Potassium 3.6 mmol/L (3.5-5.1) 01/25/21 05:23 BUN 13 mg/dL (7-18) 01/25/21 05:23 Creatinine 0.43 mg/dL (0.55-1.3) L 01/25/21 05:23 Glucose 103 mg/dL (74-106) 01/25/21 05:23 Phosphorus 2.1 mg/dL (2.5-4.9) L 01/25/21 05:23 Magnesium 2.5 mg/dL (1.8-2.4) H 01/24/21 05:36 Total Bilirubin 0.5 mg/dL (0.2-1.0) 01/23/21 10:07 AST 105 U/L (15-37) H 01/23/21 10:07 ALT 198 U/L (12-78) H 01/23/21 10:07 Alkaline Phosphatase 70 U/L (45-117) 01/23/21 10:07 Lipase 116 U/L (73-393) 01/23/21 10:07 Home Medications: Ciprofloxacin HCl [Cipro 500 MG Tablet] 500 mg PO BID #8 tab 01/25/21 Codeine/APAP [Tylenol W/Codeine #3 tab] 1 tab PO Q6HP PRN #30 tab 01/25/21 Pantoprazole [Protonix Tab] 40 mg PO DAILY #30 tab 01/25/21 metroNIDAZOLE [Flagyl] 500 mg PO Q8H #12 tablet 01/25/21 New Medications: Codeine/APAP [Tylenol W/Codeine #3 tab] 1 tab PO Q6HP PRN #30 tab PRN Reason: Pain Ciprofloxacin HCl [Cipro 500 MG Tablet] 500 mg PO BID #8 tab metroNIDAZOLE [Flagyl] 500 mg PO Q8H #12 tablet Pantoprazole [Protonix Tab] 40 mg PO DAILY #30 tab Diet: Regular Activity: Ad dewey Followup: NONE,NONE [Primary Care Provider] - Time spent managing pt's care (in minutes): 36
[2021-01-25 15:59] VITALS: BP 137/82; TEMP 97.9
== END 2021-01-25 17:17 | disposition home or self-care (01) | DRG 391 ==
LOC: ER 10:02 → INTOOBSV 16:41 → OBSVTOIN 16:41 → ERHOLD 16:41 → 2ND 19:23 → OBSVTOIN 01-24 16:36
PROVIDERS: ADMIT Internal Medicine; ATTEND Internal Medicine
DX: A09 Infectious gastroenteritis and colitis, unspecified (principal); K22.6 Gastro-esophageal laceration-hemorrhage syndrome; E87.2 Acidosis; E86.0 Dehydration; F10.10 Alcohol abuse, uncomplicated; Z20.822 Contact with and (suspected) exposure to COVID-19
CPT/HCPCS: 36415; 74177; 76705; 80048; 80076; 81003; 81025; 82805; 83605; 83690; 83735; 84100; 84443; 85025; 99285; C9113; G0378; J0744; J1200; J2270; J2405; J2550; J2765; J3010; J7030; Q9967; U0003